=== PATIENT | male | born 1940 | race Caucasian/White ===

== ENCOUNTER 2017-09-09 08:58 | Observation (INO) ==
[2017-09-09] MEDS ORDERED: 0.9 % Sodium Chloride 1,000 ML IVC ONE (09:21)
--- NOTE | 2017-09-09 09:21 | Emergency Department Note ---
Disposition Clinical Impression: Hyponatremia, Hypochloremia, Muscle cramps, Increased frequency of urination Disposition: Admitted As Inpatient Condition: Good Time of Disposition: 11:32 General Adult HPI - General Chief complaint: ED Abdominal Pain Stated complaint: urinary symptoms/leg cramps/exhaustion/abd pain Time Seen by Provider: 09/09/17 09:04 Source: patient, family (Daughter) Mode of arrival: ambulatory Limitations: no limitations Nursing Notes Reviewed: Yes Vital Signs Reviewed: Yes - History of Present Illness HPI Narrative: 77-year-old male history of [id number] diabetes mellitus and history of BPH s/p TURP presents emergency department for urinary frequency and cramping. Patient has been having issues with urinary frequency over the past 2 weeks or so. Recently seen here in the emergency department as well as primary care physician and diagnosed with urinary tract infection. He is currently on his 2nd antibiotic after being switched 4 days after culture grew for sensitivity. Despite the antibiotics which he continues to have urinary frequency. He feels exhausted from having to wake up throughout the evening to urinate. He does state recently his blood sugars have been higher than normal roughly 170-200. States his most recent one was about 140 and that is were typically is. He admits to outpour compliant diet. He denies any fevers or recent illness. Denies any cough, shortness of breath or chest pain. He does describe some generalized abdominal pain that is been ongoing for several weeks now. States last week CT was performed and did not show anything. The discomfort has not changed it just continues to be there. He denies any nausea or vomiting. He also reports the past 2 nights he has been experiencing some cramping from the knees down mostly in the calf region. Anytime he attempts to get out of bed seems like the muscle pulls. He is concerned he is dehydrated. He does admit to not drinking as much. History of cholecystectomy and appendectomy. He takes plavix, no anticoagulants. Pain Scale: 8 - Related Data Home Medications Medication Instructions Recorded Confirmed Aspirin Enteric Coated [Aspirin EC] 81 mg PO DAILY 11/11/14 09/09/17 Losartan Potassium [Cozaar] 50 mg PO DAILY 11/11/14 09/09/17 Cholecalciferol (Vitamin D3) 2,000 unit PO DAILY 06/05/15 09/09/17 [Vitamin D3] Atorvastatin [Lipitor] 20 mg PO HS 06/01/16 09/09/17 Dutasteride [Avodart] 0.5 mg PO QWEEK 06/01/16 09/09/17 Mirtazapine 7.5 mg PO HS 04/24/17 09/09/17 Famotidine [Heartburn Prevention] 10 mg PO DAILY 05/16/17 09/09/17 Metformin HCl [Metformin HCl ER] 500 mg PO BID 05/16/17 09/09/17 Metoprolol XL (24 HR) Succ [Toprol 100 mg PO DAILY 05/16/17 09/09/17 Xl] Omeprazole [PriLOSEC] 40 mg PO DAILY 05/16/17 09/09/17 Super Beta Prostate 1 tab PO BID 05/16/17 09/09/17 Topiramate [Topamax] 25 mg PO DAILY 05/16/17 09/09/17 Clopidogrel [Plavix] 75 mg PO DAILY 09/09/17 09/09/17 Isosorbide MONOnitrate (24 HR) 90 mg PO DAILY 09/09/17 09/09/17 [Imdur] Levothyroxine [Synthroid] [place] [address]/09/17 09/09/17 Sulfamethoxazole/Trimeth DS 1 tab PO BID 09/09/17 09/09/17 [Bactrim DS] Tamsulosin [Flomax] 0.4 mg PO DAILY 09/09/17 09/09/17 Previous Rx's Medication Instructions Recorded Albuterol Sulfate [Albuterol 2 puff IH Q4HR PRN #1 hfa.aer.ad 05/17/17 Inhaler] amLODIPine [Norvasc] 5 mg PO DAILY #30 tablet 05/17/17 Doxycycline 100 mg PO BID #10 capsule 08/16/17 Phenazopyridine [Pyridium] 100 mg PO TID #30 tablet 08/29/17 Allergies Allergy/AdvReac Type Severity Reaction Status Date / Time cephalexin AdvReac Rash Verified 09/09/17 11:38 ciprofloxacin [From Cipro] AdvReac Rash Verified 09/09/17 11:38 fenofibrate [From Tricor] AdvReac Rash Verified 09/09/17 11:38 hydrocodone AdvReac Dizziness Verified 09/09/17 11:38 Oxycodone [From Percocet] AdvReac Rash Verified 09/09/17 11:38 sulfamethoxazole AdvReac Rash Verified 09/09/17 11:38 [From Bactrim] tramadol AdvReac Rash Verified 09/09/17 11:38 trimethoprim [From Bactrim] AdvReac Rash Verified 09/09/17 11:38 All systems ED: reviewed and negative except as stated. Review of Systems: As Per HPI Constitutional: Reports: weakness. Denies: fever, chills Cardiovascular: Denies: chest pain Respiratory: Denies: cough, dyspnea Gastrointestinal: Reports: abdominal pain. Denies: nausea, vomiting, diarrhea, constipation Genitourinary: Reports: frequency. Denies: urgency, dysuria Musculoskeletal: Denies: back pain, neck pain Past Medical History - Past Medical History Attestation: Yes The following information was validated with the patient. Source: patient Medical history: Reports: CHF, diabetes, GERD, hypertension, liver disease, migraine, thyroid disease, TIA Psychiatric history: Reports: anxiety, depression - Social History Smoking Status: Never smoker Smokeless Tobacco Status: No Alcohol use: Reports: none Drug use: Reports: none Physical Exam - General Limitations: no limitations General appearance: alert, in no apparent distress - Head Head exam: atraumatic, normocephalic, normal inspection - Eye Eye exam: Present: normal appearance, PERRL, EOMI - ENT ENT exam: normal exam, normal oropharynx, mucous membranes moist - Neck Neck exam: Present: normal inspection, full ROM, trachea midline - Chest Chest inspection: Present: normal inspection, symmetric chest wall rise. Absent : tenderness, rash - Respiratory Respiratory exam: Present: normal lung sounds bilaterally. Absent: respiratory distress, wheezes - Cardiovascular Cardiovascular exam: Present: regular rate, normal rhythm, normal heart sounds. Absent: systolic murmur, diastolic murmur - Abdominal Exam Abdominal exam: Present: soft, tenderness. Absent: distention, guarding, rebound, rigidity, Escalante's sign, Rovsing's sign, tenderness at McBurney's Point Abdominal tenderness: Present: diffuse - Extremities Exam Extremities exam: Present: normal inspection, full ROM, normal capillary refill , calf tenderness. Absent: tenderness, pedal edema - Back Exam Back exam: Present: normal inspection, full ROM, CVA tenderness (R). Absent: tenderness, CVA tenderness (L) - Neurological Exam Neurological exam: Present: alert, oriented X3 - Psychiatric Psychiatric exam: Present: normal affect, normal mood - Skin Skin exam: Present: warm, dry, intact, normal color. Absent: rash, cyanosis, diaphoresis Course Course Narrative: Patient presents with persistent urinary frequency. He goes roughly every 30 minutes to reports. History of BPH s/p TURP, takes Tamsulosin. He denies any fevers, nausea or vomiting. Recently evaluated with CT scan that I reviewed that showed no acute abnormalities. He did have some diverticulosis without diverticulitis. History of cholecystectomy and appendectomy. Reports some cramping as well on top of the polyuria. Recent increase in much sugar levels. Will evaluate his electrolytes in the urinalysis. His abdomen was otherwise soft with generalize diffuse tenderness. No rigidity or rebound. Some mild right CVA tenderness. Post void residual measured 39 cm3. Will check urinalysis and electrolytes including mag and EKG. - Reevaluation(s) Reevaluation #1: Patient's urinalysis is not consistent with infection. Review of electrolyte shows worsening hyponatremia at 124 with hypochloremia. Serum osmolality is low as well. This is the lowest it has ever been. He denies any weight loss or cancer. Denies history of smoking. He does not drink alcohol. On examination he does not appear fluid overload. Will further evaluate with urine sodium, creatinine and osmolality. He reports a history of hemochromatosis which is oncologist monitors form but because this is the low to sever been we like to admit him to the hospital for further evaluation. Patient will require admission for further evaluation of his hyponatremia and further monitoring and management. They are in agreement with this plan. Impression is hyponatremia and hypochloremia. Time: 10:50 - Consultations Consultation #1: Spoke with on-call hospitalist micah Harp to admit for hyponatremia. No further orders at this time Time: 11:39 Vital Signs Temperature 97.7 F 09/09/17 08:59 Pulse Rate 73 09/09/17 08:59 Respiratory Rate 20 09/09/17 08:59 Blood Pressure 125/74 09/09/17 08:59 O2 Sat by Pulse Oximetry 98 09/09/17 08:59 Temperature 97.7 F 09/09/17 08:59 Pulse Rate 63 09/09/17 11:29 Respiratory Rate 16 09/09/17 11:29 Blood Pressure 131/77 09/09/17 11:29 O2 Sat by Pulse Oximetry 98 09/09/17 11:29 Oxygen Delivery Oxygen Delivery Room Air Medical Decision Making - MDM Narrative Medical decision making narrative: Patient was discussed with my attending physician who agrees with ED management and final disposition. They independently evaluated the patient. Please refer to their attestation to this encounter for additional information. This note was generated by [employer] voice recognition software and as a result grammatical or spelling errors may occur using this program. - Medical Records Medical records reviewed: Yes I reviewed the patient's medical records. - Lab Data Lab results reviewed: Yes I reviewed the patient's lab results. Result diagrams: 09/09/17 09:16 09/09/17 09:16 Lab Results 09/09/17 09/09/17 09/09/17 Range/Units 09:16 09:16 09:50 WBC 4.4 (4.3-11.1) K/mcL RBC 4.65 (4.19-5.50) M/mcL Hgb 14.3 (12.9-16.9) g/dL Hct 38.8 (37.5-50.1) % MCV 83.4 (83.0-100.0) fL MCH 30.8 (28.0-33.3) pg MCHC 36.9 H (31.6-35.5) g/dL RDW 13.5 (11.5-14.5) % Plt Count 115 L (140-400) K/mcL MPV 9.9 (9.4-12.4) fL Immature Gran % 0.2 (0-4) % Seg Neutrophils % 63.1 % Lymphocytes % 25.5 % Monocytes % 9.9 % Eosinophils % 1.1 % Basophils % 0.2 % Neutrophils # 2.8 (1.6-8.9) K/mcL Lymphocytes # 1.1 (0.6-4.6) K/mcL Monocytes # 0.4 (0.0-1.3) K/mcL Eosinophils # 0.1 (0.0-0.6) K/mcL Basophils # 0.0 (0.0-0.2) K/mcL Immature Plt Fraction 3.5 (1.1-6.1) % Sodium 124 L (136-145) mEq/L Potassium 4.6 (3.5-5.1) mEq/L Chloride 94 L (98-107) mEq/L Carbon Dioxide 23 (23-29) mEq/L BUN 13 (8-23) mg/dL Creatinine 1.07 (0.70-1.30) mg/dL Est GFR ( Amer) > 60 (> 60) Est GFR (Non-Af Amer) > 60 (> 60) BUN/Creatinine Ratio 12 (6-26) Glucose 183 H (70-105) mg/dL Calculated Osmolality 263 L (280-300) Calcium 9.9 (8.6-10.3) mg/dL Total Bilirubin 1.2 H (0.3-1.0) mg/dL AST 47 H (13-39) Units/L ALT 47 (7-52) Units/L Alkaline Phosphatase 74 (34-104) Units/L Serum Total Protein 7.5 (6.4-8.9) g/dL Albumin 5.0 (3.5-5.7) g/dL Globulin 2.5 (2.4-3.5) g/dL Albumin/Globulin Ratio 2.0 (1.1-2.2) Urine Color Yellow (Yellow) Urine Clarity Clear (Clear) Urine pH 6.0 (5.0-8.0) pH Units Ur Specific [place] 1.016 (1.010-1.025) Urine Protein Negative (Neg-Trace) mg/dL Urine Glucose (UA) Normal (Normal) mg/dL Urine Ketones Negative (Negative) mg/dL Urine Blood Negative (Negative) Urine Nitrite Negative (Negative) Urine Bilirubin Negative (Negative) Urine Urobilinogen Normal (Normal) mg/dL Ur Leukocyte Esterase Negative (Negative) Ur Culture Indicated? NO (NO) - EKG Data EKG #1 EKG attestation: Yes I reviewed and interpreted this EKG. EKG results narrative: EKG performed 1048 shows normal sinus rhythm 61 bpm with first-degree AV block KS interval 225, there is an occasional PVC, no ST elevation or depression, old Q waves in the inferior lead. Compared to prior EKG performed 05/16/2017 shows similar consistent finding of normal sinus rhythm 64 beats per minute with KS interval 195 and similar Q waves morphology no acute ischemic changes. Attestation Statement - Attestation Attestation: I, Wellington Ann DO, examined this patient [id number] and my medical decision-making was reviewed with Luis Guzman DO , Resident Physician. I agree with the documented findings, disposition and treatment plan as described except to the extent set forth below. Please see my progress notes for details.
--- NOTE | 2017-09-09 10:03 | Emergency Department Note ---
Disposition Clinical Impression: Hyponatremia, Hypochloremia, Muscle cramps, Increased frequency of urination Disposition: Admitted As Inpatient Condition: Good Referrals: Shalini Wood MD [Primary Care Provider] - Forms: ED Satisfaction Letter, Work/School Release Time of Disposition: 11:48 General Adult HPI - General Chief complaint: ED Abdominal Pain Stated complaint: urinary symptoms/leg cramps/exhaustion/abd pain Time Seen by Provider: 09/09/17 09:04 Source: patient, family (Daughter) Mode of arrival: ambulatory Limitations: no limitations - History of Present Illness Pain Scale: 8 - Related Data Home Medications Medication Instructions Recorded Confirmed Aspirin Enteric Coated [Aspirin EC] 81 mg PO DAILY 11/11/14 09/09/17 Losartan Potassium [Cozaar] 50 mg PO DAILY 11/11/14 09/09/17 Cholecalciferol (Vitamin D3) 2,000 unit PO DAILY 06/05/15 09/09/17 [Vitamin D3] Atorvastatin [Lipitor] 20 mg PO HS 06/01/16 09/09/17 Dutasteride [Avodart] 0.5 mg PO QWEEK 06/01/16 09/09/17 Mirtazapine 7.5 mg PO HS 04/24/17 09/09/17 Famotidine [Heartburn Prevention] 10 mg PO DAILY 05/16/17 09/09/17 Metformin HCl [Metformin HCl ER] 500 mg PO BID 05/16/17 09/09/17 Metoprolol XL (24 HR) Succ [Toprol 100 mg PO DAILY 05/16/17 09/09/17 Xl] Omeprazole [PriLOSEC] 40 mg PO DAILY 05/16/17 09/09/17 Super Beta Prostate 1 tab PO BID 05/16/17 09/09/17 Topiramate [Topamax] 25 mg PO DAILY 05/16/17 09/09/17 Clopidogrel [Plavix] 75 mg PO DAILY 09/09/17 09/09/17 Isosorbide MONOnitrate (24 HR) 90 mg PO DAILY 09/09/17 09/09/17 [Imdur] Levothyroxine [Synthroid] 50 mcg PO 0630 09/09/17 09/09/17 Sulfamethoxazole/Trimeth DS 1 tab PO BID 09/09/17 09/09/17 [Bactrim DS] Tamsulosin [Flomax] 0.4 mg PO DAILY 09/09/17 09/09/17 Previous Rx's Medication Instructions Recorded Albuterol Sulfate [Albuterol 2 puff IH Q4HR PRN #1 hfa.aer.ad 05/17/17 Inhaler] amLODIPine [Norvasc] 5 mg PO DAILY #30 tablet 05/17/17 Doxycycline 100 mg PO BID #10 capsule 08/16/17 Phenazopyridine [Pyridium] 100 mg PO TID #30 tablet 08/29/17 Allergies Allergy/AdvReac Type Severity Reaction Status Date / Time cephalexin AdvReac Rash Verified 09/09/17 11:38 ciprofloxacin [From Cipro] AdvReac Rash Verified 09/09/17 11:38 fenofibrate [From Tricor] AdvReac Rash Verified 09/09/17 11:38 hydrocodone AdvReac Dizziness Verified 09/09/17 11:38 Oxycodone [From Percocet] AdvReac Rash Verified 09/09/17 11:38 sulfamethoxazole AdvReac Rash Verified 09/09/17 11:38 [From Bactrim] tramadol AdvReac Rash Verified 09/09/17 11:38 trimethoprim [From Bactrim] AdvReac Rash Verified 09/09/17 11:38 Constitutional: Reports: weakness. Denies: fever, chills Cardiovascular: Denies: chest pain Respiratory: Denies: cough, dyspnea Gastrointestinal: Reports: abdominal pain. Denies: nausea, vomiting, diarrhea, constipation Genitourinary: Reports: frequency. Denies: urgency, dysuria Musculoskeletal: Denies: back pain, neck pain Past Medical History - Past Medical History Medical history: Reports: CHF, diabetes, GERD, hypertension, liver disease, migraine, thyroid disease, TIA Psychiatric history: Reports: anxiety, depression - Social History Smoking Status: Never smoker Smokeless Tobacco Status: No Alcohol use: Reports: none Drug use: Reports: none Physical Exam - General Limitations: no limitations General appearance: alert, in no apparent distress Course Vital Signs Temperature 97.7 F 09/09/17 08:59 Pulse Rate 73 09/09/17 08:59 Respiratory Rate 20 09/09/17 08:59 Blood Pressure 125/74 09/09/17 08:59 O2 Sat by Pulse Oximetry 98 09/09/17 08:59 Temperature 97.7 F 09/09/17 08:59 Pulse Rate 63 09/09/17 11:29 Respiratory Rate 16 09/09/17 11:29 Blood Pressure 131/77 09/09/17 11:29 O2 Sat by Pulse Oximetry 98 09/09/17 11:29 Oxygen Delivery Oxygen Delivery Room Air Medical Decision Making - Lab Data Result diagrams: 09/09/17 09:16 09/09/17 09:16 Lab Results 09/09/17 09/09/17 09/09/17 Range/Units 09:16 09:16 09:50 WBC 4.4 (4.3-11.1) K/mcL RBC 4.65 (4.19-5.50) M/mcL Hgb 14.3 (12.9-16.9) g/dL Hct 38.8 (37.5-50.1) % MCV 83.4 (83.0-100.0) fL MCH 30.8 (28.0-33.3) pg MCHC 36.9 H (31.6-35.5) g/dL RDW 13.5 (11.5-14.5) % Plt Count 115 L (140-400) K/mcL MPV 9.9 (9.4-12.4) fL Immature Gran % 0.2 (0-4) % Seg Neutrophils % 63.1 % Lymphocytes % 25.5 % Monocytes % 9.9 % Eosinophils % 1.1 % Basophils % 0.2 % Neutrophils # 2.8 (1.6-8.9) K/mcL Lymphocytes # 1.1 (0.6-4.6) K/mcL Monocytes # 0.4 (0.0-1.3) K/mcL Eosinophils # 0.1 (0.0-0.6) K/mcL Basophils # 0.0 (0.0-0.2) K/mcL Immature Plt Fraction 3.5 (1.1-6.1) % Sodium 124 L (136-145) mEq/L Potassium 4.6 (3.5-5.1) mEq/L Chloride 94 L (98-107) mEq/L Carbon Dioxide 23 (23-29) mEq/L BUN 13 (8-23) mg/dL Creatinine 1.07 (0.70-1.30) mg/dL Est GFR ( Amer) > 60 (> 60) Est GFR (Non-Af Amer) > 60 (> 60) BUN/Creatinine Ratio 12 (6-26) Glucose 183 H (70-105) mg/dL Calculated Osmolality 263 L (280-300) Calcium 9.9 (8.6-10.3) mg/dL Total Bilirubin 1.2 H (0.3-1.0) mg/dL AST 47 H (13-39) Units/L ALT 47 (7-52) Units/L Alkaline Phosphatase 74 (34-104) Units/L Serum Total Protein 7.5 (6.4-8.9) g/dL Albumin 5.0 (3.5-5.7) g/dL Globulin 2.5 (2.4-3.5) g/dL Albumin/Globulin Ratio 2.0 (1.1-2.2) Urine Color Yellow (Yellow) Urine Clarity Clear (Clear) Urine pH 6.0 (5.0-8.0) pH Units Ur Specific [place] 1.016 (1.010-1.025) Urine Protein Negative (Neg-Trace) mg/dL Urine Glucose (UA) Normal (Normal) mg/dL Urine Ketones Negative (Negative) mg/dL Urine Blood Negative (Negative) Urine Nitrite Negative (Negative) Urine Bilirubin Negative (Negative) Urine Urobilinogen Normal (Normal) mg/dL Ur Leukocyte Esterase Negative (Negative) Ur Culture Indicated? NO (NO) Attestation Statement - Attestation Attestation: I, Wellington Ann DO, examined this patient [id number] and my medical decision-making was reviewed with Luis Guzman DO , Resident Physician. I agree with the documented findings, disposition and treatment plan as described except to the extent set forth below. Please see my progress notes for details. 77-year-old male presents emergency room for evaluation of urinary symptoms. Patient said the symptoms on and off for 2 weeks. He denies any trauma or injury. Currently denying fevers chills chest pain shortness of breath headache vision changes nausea vomiting or diarrhea. He has been on antibiotic for approximately 5 days. He still has persistent increased urination that is keeping him up at night. He also has noticed some cramps in his bilateral lower extremities. He is on a diuretic at home. Patient also has a cardiac history. All of his other chronic symptoms appear to be at baseline and are not causing any issues point. His main complaint is he has not been able to sleep or get comfortable at night because he has to wake up every 30-40 minutes to urinate. He did have a TURP completed approximately 6 years ago and had not had any problems since then. Over the last several weeks she has noticed progressively worsening urinary related issues. Urinalysis was reviewed from previous evaluation was positive for Pseudomonas that was sensitive to all antibiotics. Patient has been on antibiotic at this time. Physical exam is otherwise unremarkable this is a well-appearing gentleman resting comfortably in the bed lungs are clear heart is regular abdomen is soft he does have some mild suprapubic discomfort and tenderness but no guarding no rigidity no peritoneal symptoms. No reproducible CVA tenderness noted on exam. There is no visible signs or rash or lesion across the torso. Patient is ambulatory in his main complaint at this time is that he is unable to sleep because he wakes up to urinate so often. CT imaging from previous evaluation less than one week ago was reviewed by myself and does show an enlarged prostate but no signs of inflammation. His bladder is enlarged on CT scan this time. Postvoid residual will be completed at this point along with screening laboratory workup. Disposition to be determined once full workup and treatment course, established. CBC chemistry and urinalysis will be reviewed. The daughter is concerned about diabetic related issues and requested workup at this time. Clinically he does not meet any criteria for diabetic ketoacidosis or diabetic related issues at this point. Screening labs will be reviewed with any of these concerns and disposition to be determined. See detailed documentation, physical exam, medical intervention, medical decision-making and disposition in the resident physician's note. No critical care provider the patient's treatment course. 1050 Patient has hyponatremia as well as hypokalemia that is worse than previous. Could account for the patient's symptoms including cramping and pain in the extremities. Urinary symptoms are unknown etiology at this point. Because of a context of urinary related complaint as well as the hyponatremia patient most likely require admission for further workup and evaluation. Patient is otherwise currently stable and urine is negative. Disposition pending the completion of the treatment course and evaluation. Patient was also placed on peritoneum during the last evaluation and did not specifically help with the symptoms. Disposition will most likely be admission secondary to the abnormal labs are progressively getting worse along with the patient's urinary symptoms. Patient is otherwise hemodynamically stable. Admission process to be completed. 1145 Patient was discussed with the hospitalist. He will come and evaluate the patient in the emergency room. Admission process will be completed for unknown etiology to the hyponatremia as well as generalized weakness and cramping. Patient is otherwise clinically stable. Admission process to be completed at this time.
[2017-09-09 10:06] LABS: Immature Granulocytes % 0.2 % (0-4)
[2017-09-09 10:30] LABS: Bilirubin,Urine Negative (Negative); Blood,Urine Negative (Negative); Clarity,Urine Clear (Clear); Color,Urine Yellow (Yellow); Glucose,Urine (UA) Normal (Normal); Ketones,Urine Negative (Negative); Leukocyte Esterase,Urine Negative (Negative); Nitrite,Urine Negative (Negative); Protein,Urine Negative (Neg-Trace); Specific Gravity,Urine 1.016 (1.010-1.025); Urobilinogen,Urine Normal (Normal)
[2017-09-09 10:36] LABS: Alanine Aminotransferase 47 Units/L (7-52); Alkaline Phosphatase 74 Units/L (34-104); Aspartate Amino Transferase 47 Units/L (13-39); BUN/Creatinine Ratio 12 (6-26); Bilirubin,Total 1.2 mg/dL (0.3-1.0); Blood Urea Nitrogen 13 mg/dL (8-23); Calcium 9.9 mg/dL (8.6-10.3); Carbon Dioxide 23 mEq/L (23-29); Chloride 94 mEq/L (98-107); Globulin 2.5 g/dL (2.4-3.5); Glucose 183 mg/dL (70-105); Osmolality,Calculated 263 (280-300); Potassium 4.6 mEq/L (3.5-5.1); Sodium 124 mEq/L (136-145); Total Protein 7.5 g/dL (6.4-8.9); eGFR For African Americans > 60 (> 60); eGFR For Non-African Americans > 60 (> 60)
[2017-09-09 10:42] LABS: Basophils % 0.2 %; Monocytes % 9.9 %
[2017-09-09 10:45] LABS: Eosinophils # 0.1 K/mcL (0.0-0.6); Eosinophils % 1.1 %; Hematocrit 38.8 % (37.5-50.1); Hemoglobin 14.3 g/dL (12.9-16.9); Immature Platelets 3.5 % (1.1-6.1); Lymphocytes # 1.1 K/mcL (0.6-4.6); Lymphocytes % 25.5 %; Mean Corpuscular HGB Conc 36.9 g/dL (31.6-35.5); Mean Corpuscular Hemoglobin 30.8 pg (28.0-33.3); Mean Corpuscular Volume 83.4 fL (83.0-100.0); Mean Platelet Volume 9.9 fL (9.4-12.4); Monocytes # 0.4 K/mcL (0.0-1.3); Platelet Count 115 K/mcL (140-400); Red Blood Count 4.65 M/mcL (4.19-5.50); Red Cell Distribution Width 13.5 % (11.5-14.5); Segmented Neutrophils % 63.1 %
[2017-09-09 10:55] LABS: Neutrophils # 2.8 K/mcL (1.6-8.9)
[2017-09-09] MEDS ORDERED: Naloxone 0.4 MG/ML INJ IVP PRN (12:10)
--- NOTE | 2017-09-09 12:21 | Internal Med History&Physical ---
<BalbirDanielle R - Last Filed: 09/09/17 13:34> Date of Encounter: 09/09/17 Time of Encounter: 12:20 Internal Medicine - H&P: HPI Chief complaint: Urine frequency and weakness Admitted From: Home Plans for Post Hospital Care: Home History of present illness: Mr. Murray is a 77 year old male with history of prostate resection, status post TURP, hemochromatosis, with last phlebotomy in May 2017, heart failure , stents 3, and BPH. Patient was seen in the ED earlier this week with similar symptoms and was placed on Bactrim after a culture and sensitivity report. He indicated this is the second antibiotic for his UTI. Today the patient indicates he continues to have urinary frequency for the past 2 weeks and was started on Pyridium, which was not helpful. UA showed no evidence of a UTI today, will get culture. Patient does have history of BPH with a prostate resection and s/p Turp and is currently on Flomax. Sodium today is 124, patient has had urine frequency home with small amounts of urine and he indicated that he was increasing his fluids at home. He does not think he is dry. Waiting for results of serum osmalarity, urine na and urine osmalarity. Preserved creatinine and BUN @ this time. Chloride was also decreased at 94. Will continue IVF's. Past Med Surg Social Fam HX - Past Medical History Medical history: CHF, diabetes, GERD, hypertension, liver disease, migraine, thyroid disease, TIA Psychiatric history: anxiety, depression - Social History Smoking Status: Never smoker Smokeless Tobacco Status: No Alcohol use: none Drug use: none Internal Medicine - H&P: Meds Aspirin Enteric Coated [Aspirin EC] 81 mg PO DAILY 11/11/14 [History] Losartan Potassium [Cozaar] 50 mg PO DAILY 11/11/14 [History] Cholecalciferol (Vitamin D3) [Vitamin D3] 2,000 unit PO DAILY 06/05/15 [History] Atorvastatin [Lipitor] 20 mg PO HS 06/01/16 [History] Dutasteride [Avodart] 0.5 mg PO QWEEK 06/01/16 [History] Mirtazapine 7.5 mg PO HS 04/24/17 [History] Famotidine [Heartburn Prevention] 10 mg PO DAILY 05/16/17 [History] Metformin HCl [Metformin HCl ER] 500 mg PO BID 05/16/17 [History] Metoprolol XL (24 HR) Succ [Toprol Xl] 100 mg PO DAILY 05/16/17 [History] Omeprazole [PriLOSEC] 40 mg PO DAILY 05/16/17 [History] Super Beta Prostate 1 tab PO BID 05/16/17 [History] Topiramate [Topamax] 25 mg PO DAILY 05/16/17 [History] Albuterol Sulfate [Albuterol Inhaler] 2 puff IH Q4HR PRN #1 hfa.aer.ad 05/17/17 [Rx] amLODIPine [Norvasc] 5 mg PO DAILY #30 tablet 05/17/17 [Rx] Doxycycline 100 mg PO BID #10 capsule 08/16/17 [Rx] Phenazopyridine [Pyridium] 100 mg PO TID #30 tablet 08/29/17 [Rx] Clopidogrel [Plavix] 75 mg PO DAILY 09/09/17 [History] Isosorbide MONOnitrate (24 HR) [Imdur] 90 mg PO DAILY 09/09/17 [History] Levothyroxine [Synthroid] 50 mcg PO 30 09/09/17 [History] Tamsulosin [Flomax] 0.4 mg PO DAILY 09/09/17 [History] 3 Allergy/AdvReac Type Severity Reaction Status Date / Time cephalexin AdvReac Rash Verified 09/09/17 11:38 ciprofloxacin [From Cipro] AdvReac Rash Verified 09/09/17 11:38 fenofibrate [From Tricor] AdvReac Rash Verified 09/09/17 11:38 hydrocodone AdvReac Dizziness Verified 09/09/17 11:38 Oxycodone [From Percocet] AdvReac Rash Verified 09/09/17 11:38 sulfamethoxazole AdvReac Rash Verified 09/09/17 11:38 [From Bactrim] tramadol AdvReac Rash Verified 09/09/17 11:38 trimethoprim [From Bactrim] AdvReac Rash Verified 09/09/17 11:38 All Systems PM: A 10-system review of systems was performed and is negative for pertinent findings except as documented above in the HPI. - Constitutional Constitutional: fatigue, no chills, no fever(s), no night sweats - EENT Eyes: no change in vision, no discharge, no pain, no photophobia Ears: no ear discharge, no ear pain, no tinnitus Nose, mouth and throat: no dysphagia, no nasal discharge, no neck pain, no sore throat - Cardiovascular Cardiovascular ROS IM: no chest pain, no diaphoresis, no dyspnea, no lightheadedness, no palpitations, no syncope - Respiratory Respiratory: no cough, no dyspnea, no wheezing, no excessive phlegm production - Gastrointestinal Gastrointestinal: no abdominal pain, no diarrhea, no hematemesis, no hematochezia, no melena, no nausea, no vomiting - Genitourinary Genitourinary ROS male: nocturia, urinary frequency, urinary urgency - Musculoskeletal Musculoskeletal ROS IM: no numbness, no tingling - Integumentary Integumentary IM: no rash, no unusual bruising - Neurological Neurological ROS: no confusion, no convulsions, no focal weakness, no numbness, no tingling, no tremor(s) - Endocrine Endocrine IM: polyuria - Hematologic/Lymphatic Hematologic/Lymphatic: no easy bruising - Constitutional Vitals: Temp Pulse Resp BP Pulse Ox 97.7 F 63 16 131/77 98 09/09/17 08:59 09/09/17 11:29 09/09/17 11:29 09/09/17 11:29 09/09/17 11:29 General appearance: Present: A&O X 3 - Head Head exam: Present: atraumatic, normocephalic - Eye Eye exam: Present: PERRL, conjuntiva pink, sclera anicteric Pupils: Present: PERRL - Neck Neck exam general surgery: Present: supple, trachea midline. Absent: lymphadenopathy - Respiratory Respiratory exam: Present: CTAB. Absent: accessory muscle use, rales, rhonchi, wheezes - Cardiovascular Cardiovascular exam: Present: RRR, +S1, +S2. Absent: diastolic murmur, gallop, rubs, systolic murmur - GI/Abdominal GI/Abdominal exam: Present: normal bowel sounds, soft, no peritoneal signs. Absent: distended, tenderness - Extremities Exam Extremities exam: Present: warm, radial pulses palpable and symmetrical. Absent : calf tenderness, cyanotic, pedal edema - Neurological Exam Neurological exam: Present: CN II-XII intact, oriented X3, no focal deficits. Absent: pronater drift, facial droop, speech deficit - Skin Skin exam: Present: dry, intact Internal Med - H&P Results - Labs CBC & Chem 7: 09/09/17 09:16 09/09/17 09:16 Labs: Short CBC 09/09/17 Range/Units 09:16 WBC 4.4 (4.3-11.1) K/mcL Hgb 14.3 (12.9-16.9) g/dL Hct 38.8 (37.5-50.1) % Plt Count 115 L (140-400) K/mcL Neutrophils # 2.8 (1.6-8.9) K/mcL BMP 09/09/17 09:16 Sodium 124 L Potassium 4.6 Chloride 94 L Carbon Dioxide 23 BUN 13 Creatinine 1.07 Glucose 183 H Calcium 9.9 Liver Function 09/09/17 Range/Units 09:16 Total Bilirubin 1.2 H (0.3-1.0) mg/dL AST 47 H (13-39) Units/L ALT 47 (7-52) Units/L Alkaline Phosphatase 74 (34-104) Units/L Albumin 5.0 (3.5-5.7) g/dL Urine 09/09/17 Range/Units 09:50 Urine Color Yellow (Yellow) Urine Clarity Clear (Clear) Urine pH 6.0 (5.0-8.0) pH Units Ur Specific [place] 1.016 (1.010-1.025) Urine Protein Negative (Neg-Trace) mg/dL Urine Glucose (UA) Normal (Normal) mg/dL - Assessment and plan (1) Hyponatremia Current Visit: Yes Status: Acute Assessment and plan: Na is 124 today most likely due to hypovolemia and dehydration Serum Na every 4 hours Gentle IV fluids Goal of correction today is up to 130 Serum osmalarity, urine osmalarity and urine na today (2) Hypochloremia Current Visit: Yes Status: Acute Assessment and plan: Continue IVFs 0.9% NS @ 100ml/hr (3) Increased frequency of urination Current Visit: Yes Status: Acute Assessment and plan: Continue home med, Flomax daily Patient had prostate resection 6-[address] Kapadia for similar symptoms UA negative for infection, Asked lab to culture urine due to the patient indicating positive cultures in the past with clean UA's. (4) Diabetes Current Visit: No Status: Acute Assessment and plan: Accu-Chek 183 on admission today, Goal is 200 or less, while inpatient We will hold metformin while inpatient and start mild Humalog insulin coverage Accu-Cheks before meals at bedtime Hemoglobin A1c in a.m. Qualifiers: Diabetes mellitus type: type 2 Diabetes mellitus mcfp insulin use: without exterminator termite use Diabetes mellitus complication status: with unspecified complications Qualified Code(s): E11.8 - Type 2 diabetes mellitus with unspecified complications (5) BPH (benign prostatic hyperplasia) Current Visit: Yes Status: Acute Assessment and plan: Patient had prostate resection 6-7 years ago. Hx of TURP Advised him to follow up outpatient with urologist. Continue home medications: Flomax Qualifiers: Lower urinary tract symptom presence: unspecified whether lower urinary tract symptoms present Qualified Code(s): N40.0 - Benign prostatic hyperplasia without lower urinary tract symptoms (6) Hemochromatosis Current Visit: No Status: Chronic Assessment and plan: Last phlebotomy was May 2017, Patient to follow-up outpatient with hematology Qualifiers: Hemochromatosis type: unspecified Qualified Code(s): E83.119 - Hemochromatosis, unspecified - Time Spent With Patient Total time spent is greater than 50% in coordination of care (as documented) at patient's floor/unit and/or counseling patient: 25 - 35 minutes <Octavia Ramirez - Last Filed: 09/10/17 08:08> Date of Encounter: 09/09/17 Internal Medicine - H&P: HPI History of present illness: Mr. Murray is a 77 year old male All Systems PM: A 10-system review of systems was performed and is negative for pertinent findings except as documented above in the HPI. - Constitutional Vitals: Temp Pulse Resp BP Pulse Ox 97.9 F 66 14 196/97 95 09/10/17 06:59 09/10/17 06:59 09/10/17 06:59 09/10/17 06:59 09/10/17 06:59 Internal Med - H&P Results - Labs CBC & Chem 7: 09/10/17 05:26 09/10/17 05:26 Labs: Short CBC 09/10/17 Range/Units 05:26 WBC 3.0 L (4.3-11.1) K/mcL Hgb 13.4 (12.9-16.9) g/dL Hct 35.3 L (37.5-50.1) % Plt Count 91 L (140-400) K/mcL Neutrophils # 1.9 (1.6-8.9) K/mcL BMP 09/09/17 09/09/17 09/10/17 16:03 20:21 00:00 Sodium 126 L 127 L 128 L Potassium Chloride Carbon Dioxide BUN Creatinine Glucose Calcium 09/10/17 05:26 Sodium 127 L Potassium 4.8 Chloride 101 Carbon Dioxide 21 L BUN 12 Creatinine 0.99 Glucose 131 H Calcium 9.4 Liver Function 09/10/17 Range/Units 05:26 Total Bilirubin 1.1 H (0.3-1.0) mg/dL AST 45 H (13-39) Units/L ALT 46 (7-52) Units/L Alkaline Phosphatase 72 (34-104) Units/L Albumin 4.5 (3.5-5.7) g/dL - Attending Attestation I have personally performed a face to face evaluation on this patient. I have reviewed and agree with the care plan provided by LIGHT RAIL OPERATOR Danielle Mcgregor. History and Exam by me shows: Mr. Murray is a 77 year old male with history of prostate resection, status post TURP, hemochromatosis, with last phlebotomy in May 2017, diastolic heart failure, CAD with stents 3, and BPH pt presented to ER with generalized weakness and cramps in both legs. Patient was seen in the ED earlier this week with similar symptoms and was placed on Bactrim after a culture and sensitivity report. He indicated this is the second antibiotic for his UTI. His UA - WNL, His sodium level @ 124. Gen: A, A, O x 3 Chest: Diminished BS b/l Heart: S1S2 + Abd: Soft, NT a/p 1. Acute hyponatremia Mostly hypovolemic cont IV hydration Q6hr Na Our goal of correction 0.5 meq/hr, not more than 8-10 meq/day He does need to be in the hospital more than 2 night, will make him full admission - Time Spent With Patient Total time spent is greater than 50% in coordination of care (as documented) at patient's floor/unit and/or counseling patient:
[2017-09-09 12:40] LABS: Magnesium 1.7 mg/dL (1.6-2.6)
[2017-09-09] MEDS ORDERED: Dextrose Gel 15 GM/37.5 ML TUBE PO PRN ×2 (13:05)
[2017-09-09] MEDS ORDERED: D5% in Water 1,000 ML IVC PRN (13:05)
[2017-09-09] MEDS ORDERED: *HR* Dextrose 50 % in Water (Syg) 50 ML SYRINGE IVP PRN (13:05)
[2017-09-09] MEDS: 0.9 % Sodium Chloride 1,000 ML IVC SCH (13:59)
[2017-09-09 14:18] LABS: Sodium, Urine 60.7 mEq/L
[2017-09-09] MEDS: Insulin LISPRO 300 UNITS/3 ML VIAL SQ SCH ×2 (18:06→21:10)
[2017-09-09] MEDS: Mirtazapine 15 MG TABLET PO SCH (19:44)
[2017-09-09] MEDS ORDERED: Sulfamethoxazole/Trimeth DS 1 EACH TABLET PO SCH (21:00)
[2017-09-10] MEDS: 0.9 % Sodium Chloride 1,000 ML IVC SCH (00:42)
[2017-09-10 06:02] LABS: Hematocrit 35.3 % (37.5-50.1); Immature Granulocytes % 0.3 % (0-4)
[2017-09-10 06:21] LABS: Alanine Aminotransferase 46 Units/L (7-52); Albumin 4.5 g/dL (3.5-5.7); Alkaline Phosphatase 72 Units/L (34-104); Aspartate Amino Transferase 45 Units/L (13-39); BUN/Creatinine Ratio 12 (6-26); Bilirubin,Total 1.1 mg/dL (0.3-1.0); Blood Urea Nitrogen 12 mg/dL (8-23); Calcium 9.4 mg/dL (8.6-10.3); Carbon Dioxide 21 mEq/L (23-29); Chloride 101 mEq/L (98-107); Globulin 2.3 g/dL (2.4-3.5); Glucose 131 mg/dL (70-105); Osmolality,Calculated 266 (280-300); Potassium 4.8 mEq/L (3.5-5.1); Sodium 127 mEq/L (136-145); Total Protein 6.8 g/dL (6.4-8.9); eGFR For African Americans > 60 (> 60); eGFR For Non-African Americans > 60 (> 60)
[2017-09-10 06:41] LABS: Basophils % 0.3 %; Eosinophils # 0.1 K/mcL (0.0-0.6); Eosinophils % 1.7 %; Hemoglobin 13.4 g/dL (12.9-16.9); Immature Platelets 2.8 % (1.1-6.1); Lymphocytes # 0.8 K/mcL (0.6-4.6); Lymphocytes % 24.9 %; Mean Corpuscular Hemoglobin 32.1 pg (28.0-33.3); Mean Corpuscular Volume 84.4 fL (83.0-100.0); Mean Platelet Volume 9.5 fL (9.4-12.4); Monocytes # 0.3 K/mcL (0.0-1.3); Neutrophils # 1.9 K/mcL (1.6-8.9); Red Blood Count 4.18 M/mcL (4.19-5.50); Red Cell Distribution Width 13.5 % (11.5-14.5); Segmented Neutrophils % 62.8 %
[2017-09-10 06:42] LABS: Platelet Count 91 K/mcL (140-400)
[2017-09-10 07:18] LABS: Estimated Average Glucose 171 mg/dl; Hemoglobin A1C 7.6 %
[2017-09-10] MEDS: Cholecalciferol (D-3) 1,000 UNIT TABLET PO SCH (07:58)
[2017-09-10] MEDS: Topiramate 25 MG TABLET PO SCH (07:58)
[2017-09-10] MEDS: amLODIPine 5 MG TABLET PO SCH (07:58)
[2017-09-10] MEDS: Famotidine 20 MG TABLET PO SCH (07:58)
[2017-09-10] MEDS: Aspirin Enteric Coated 81 MG Tablet PO SCH (07:59)
[2017-09-10] MEDS: Isosorbide MONOnitrate (24 HR) 30 MG TAB.ER.24H PO SCH (07:59)
[2017-09-10] MEDS: Metoprolol XL (24 HR) Succ 50 MG TAB.ER.24H PO SCH (07:59)
[2017-09-10] MEDS: Insulin LISPRO 300 UNITS/3 ML VIAL SQ SCH ×4 (08:00→20:21)
--- NOTE | 2017-09-10 10:20 | Urology - Consult Note ---
Date of Encounter: 09/10/17 Time of Encounter: 10:18 - Assessment and Plan (1) BPH (benign prostatic hyperplasia) Current Visit: Yes Status: Acute Assessment and plan: 77-year-old man with a history of BPH and increased urinary frequency. He seems to be emptying his bladder adequately. He is status post TUIP. I will give him a trial of oxybutynin 5 mg by mouth twice a day to see if that improves his frequency. His urine does not appear infected today. As an outpatient had recommended proceeding with a cystoscopy. The risks were informed. Again, we can arrange that as an outpatient. PSA was 0.61 from 2017. Qualifiers: Lower urinary tract symptom presence: unspecified whether lower urinary tract symptoms present Qualified Code(s): N40.0 - Benign prostatic hyperplasia without lower urinary tract symptoms (2) Increased frequency of urination Current Visit: Yes Status: Acute (3) Diabetes Current Visit: No Status: Acute Qualifiers: Diabetes mellitus type: type 2 Diabetes mellitus skilled nursing insulin use: without termite treater use Diabetes mellitus complication status: with unspecified complications Qualified Code(s): E11.8 - Type 2 diabetes mellitus with unspecified complications Urology CN:HPI Consult date: 09/10/17 Requesting physician: Rachael Quijano History of present illness: 77-year-old man presents with concern for hyponatremia, leg cramping, and increased urinary frequency. He has a long-standing history of diabetes mellitus. He is status post a TURP versus TUIP by Dr. Kapadia approximately 6 years ago. He notes increased urinary frequency and has been having trouble to sleep at night. He feels the urge to go the bathroom on time. He was recently treated for a Pseudomonas urinary tract infection. He had a CT scan which showed no evidence of nephrolithiasis. There is no evidence of hydronephrosis. He seems to be draining his bladder well. He takes some oral supplements for his prostate as well as tamsulosin. He has tried Azo, but that was not successful. Past Med Surg Social Fam HX - Past Medical History Medical history: CHF, diabetes, GERD, hypertension, liver disease, migraine, thyroid disease, TIA Psychiatric history: anxiety, depression - Past Surgical History Surgical History: appendectomy, cholecystectomy - Social History Smoking Status: Never smoker Smokeless Tobacco Status: No Alcohol use: none Drug use: none - Family History Father Adopted: Yes Mother History Unknown: Yes Medications and Allergies Aspirin Enteric Coated [Aspirin EC] 81 mg PO DAILY 11/11/14 [History] Losartan Potassium [Cozaar] 50 mg PO DAILY 11/11/14 [History] Cholecalciferol (Vitamin D3) [Vitamin D3] 2,000 unit PO DAILY 06/05/15 [History] Atorvastatin [Lipitor] 20 mg PO HS 06/01/16 [History] Dutasteride [Avodart] 0.5 mg PO QWEEK 06/01/16 [History] Mirtazapine 7.5 mg PO HS 04/24/17 [History] Famotidine [Heartburn Prevention] 10 mg PO DAILY 05/16/17 [History] Metformin HCl [Metformin HCl ER] 500 mg PO BID 05/16/17 [History] Metoprolol XL (24 HR) Succ [Toprol Xl] 100 mg PO DAILY 05/16/17 [History] Omeprazole [PriLOSEC] 40 mg PO DAILY 05/16/17 [History] Super Beta Prostate 1 tab PO BID 05/16/17 [History] Topiramate [Topamax] 25 mg PO DAILY 05/16/17 [History] Albuterol Sulfate [Albuterol Inhaler] 2 puff IH Q4HR PRN #1 hfa.aer.ad 05/17/17 [Rx] amLODIPine [Norvasc] 5 mg PO DAILY #30 tablet 05/17/17 [Rx] Doxycycline 100 mg PO BID #10 capsule 08/16/17 [Rx] Phenazopyridine [Pyridium] 100 mg PO TID #30 tablet 08/29/17 [Rx] Clopidogrel [Plavix] 75 mg PO DAILY 09/09/17 [History] Isosorbide MONOnitrate (24 HR) [Imdur] 90 mg PO DAILY 09/09/17 [History] Levothyroxine [Synthroid] 50 mcg PO 0630 09/09/17 [History] Tamsulosin [Flomax] 0.4 mg PO DAILY 09/09/17 [History] 3 Allergy/AdvReac Type Severity Reaction Status Date / Time cephalexin AdvReac Rash Verified 09/09/17 11:38 ciprofloxacin [From Cipro] AdvReac Rash Verified 09/09/17 11:38 fenofibrate [From Tricor] AdvReac Rash Verified 09/09/17 11:38 hydrocodone AdvReac Dizziness Verified 09/09/17 11:38 Oxycodone [From Percocet] AdvReac Rash Verified 09/09/17 11:38 sulfamethoxazole AdvReac Rash Verified 09/09/17 11:38 [From Bactrim] tramadol AdvReac Rash Verified 09/09/17 11:38 trimethoprim [From Bactrim] AdvReac Rash Verified 09/09/17 11:38 Review of Systems - Constitutional no chills, no fever(s) - EENT Nose, mouth and throat: no dizziness - Cardiovascular no chest pain - Respiratory no dyspnea - Gastrointestinal no nausea, no vomiting - Genitourinary urinary frequency, no flank pain, no hematuria - Musculoskeletal no back pain - Integumentary no erythema, no rash - Neurological no weakness - Psychiatric no suicidal ideation - Hematologic/Lymphatic no easy bleeding - Allergic/Immunologic no wheezing Exam Initial Vital Signs Temp Pulse Resp BP Pulse Ox 97.7 F 73 20 125/74 98 09/09/17 08:59 09/09/17 08:59 09/09/17 08:59 09/09/17 08:59 09/09/17 08:59 - General physical appearance Present: well developed, well nourished, no distress - Eyes Absent: icteric - ENT Present: normal nares - Neck Present: trachea midline - Respiratory Present: normal respiratory effort - Cardiovascular Cardiovascular exam IM: RRR - Abdomen Abdomen: Present: soft - Genitourinary normal penis with no external lesions (Uncircumcised. Normal testicles.) Urology Results - Labs 09/10/17 05:26 09/10/17 05:26 Abnormal lab results WBC 3.0 K/mcL (4.3-11.1) L 09/10/17 05:26 RBC 4.18 M/mcL (4.19-5.50) L 09/10/17 05:26 Hct 35.3 % (37.5-50.1) L 09/10/17 05:26 MCHC 38.0 g/dL (31.6-35.5) H 09/10/17 05:26 Plt Count 91 K/mcL (140-400) L 09/10/17 05:26 Sodium 127 mEq/L (136-145) L 09/10/17 05:26 Carbon Dioxide 21 mEq/L (23-29) L 09/10/17 05:26 Glucose 131 mg/dL (70-105) H 09/10/17 05:26 POC Glucose 160 mg/dL (70-99) H 09/09/17 20:06 Hemoglobin A1c 7.6 % (-5.6) H 09/10/17 05:26 Serum Osmolality 269 mOsm/kg (280-300) L 09/09/17 16:03 Calculated Osmolality 266 (280-300) L 09/10/17 05:26 Total Bilirubin 1.1 mg/dL (0.3-1.0) H 09/10/17 05:26 AST 45 Units/L (13-39) H 09/10/17 05:26 Globulin 2.3 g/dL (2.4-3.5) L 09/10/17 05:26 All other labs normal. - Imaging CT scan - abdomen: report reviewed, image reviewed CT scan - pelvis: report reviewed, image reviewed Consult Discharge Plan - Plan Referrals: Shalini Wood MD [Primary Care Provider] -
--- NOTE | 2017-09-10 12:29 | Internal Med Progress Note ---
Date of Encounter: 09/10/17 Time of Encounter: 12:45 - Assessment and plan (1) BPH (benign prostatic hyperplasia) Current Visit: Yes Status: Acute Assessment and plan: per hx. Remote TURP 6-7 years ago. Now with urinary frequency; patient reports getting up to void approximately every 45 minutes for the last 2 weeks. UA does not appear to be indicative of UTI. Evaluated by urology who recommended starting oxybutynin. Will need outpatient cystoscopy. Qualifiers: Lower urinary tract symptom presence: unspecified whether lower urinary tract symptoms present Qualified Code(s): N40.0 - Benign prostatic hyperplasia without lower urinary tract symptoms (2) Hyponatremia Current Visit: Yes Status: Acute Assessment and plan: Na 124; appears somewhat chronic from chart review. Remains neurologically intact. Continue IV fluids. Monitor repeat sodium level (3) DVT prophylaxis Current Visit: No Status: Acute Assessment and plan: lovenox - Time Spent With Patient Total time spent is greater than 50% in coordination of care (as documented) at patient's floor/unit and/or counseling patient: - Subjective Interval history: Seen and examined at bedside. Patient is new to me. Information obtained from chart review and patient report. He still complaining of urinary frequency area and says he has to get to the bathroom every 45 minutes to an hour. He is requesting urology consult as he was supposed to see them later on this month. He also reports bilateral leg cramps and abdominal cramping. - Constitutional Vitals: Temp Pulse Resp BP Pulse Ox 98 F 64 14 125/71 98 09/10/17 10:48 09/10/17 10:48 09/10/17 10:48 09/10/17 10:48 09/10/17 10:48 General appearance: Present: A&O X 3, morbidly obese - Head Head exam: Present: atraumatic, normocephalic - Eye Eye exam: Present: PERRL, conjuntiva pink, sclera anicteric Pupils: Present: PERRL - Neck Neck exam general surgery: Present: supple, trachea midline. Absent: lymphadenopathy - Respiratory Respiratory exam: Present: CTAB. Absent: accessory muscle use, rales, rhonchi, wheezes - Cardiovascular Cardiovascular exam: Present: RRR, +S1, +S2. Absent: diastolic murmur, gallop, rubs, systolic murmur - GI/Abdominal GI/Abdominal exam: Present: normal bowel sounds, soft, no peritoneal signs. Absent: distended, tenderness - Extremities Exam Extremities exam: Present: warm, radial pulses palpable and symmetrical. Absent : calf tenderness, cyanotic, pedal edema - Neurological Exam Neurological exam: Present: CN II-XII intact, oriented X3, no focal deficits. Absent: pronater drift, facial droop, speech deficit - Skin Skin exam: Present: dry, intact Internal Medicine: Result - Labs CBC & Chem 7: 09/10/17 05:26 18 05:26 - VTE Documentation of Mechanical Device: Venous foot pump, device Consult Discharge Plan - Plan Referrals: Shalini Wood MD [Primary Care Provider] -
[2017-09-10] MEDS: Mirtazapine 15 MG TABLET PO SCH (20:21)
[2017-09-11] MEDS ORDERED: *HR* Enoxaparin 40 MG/0.4 ML SYRINGE SQ SCH (06:00)
[2017-09-11] MEDS ORDERED: *HR* Enoxaparin 30 MG/0.3 ML SYRINGE SQ SCH (06:00)
[2017-09-11 06:53] VITALS: BP 157/87
[2017-09-11 07:09] LABS: Alanine Aminotransferase 41 Units/L (7-52); Albumin 4.3 g/dL (3.5-5.7); Alkaline Phosphatase 68 Units/L (34-104); Aspartate Amino Transferase 36 Units/L (13-39); BUN/Creatinine Ratio 16 (6-26); Bilirubin,Total 1.2 mg/dL (0.3-1.0); Blood Urea Nitrogen 15 mg/dL (8-23); Calcium 9.3 mg/dL (8.6-10.3); Carbon Dioxide 20 mEq/L (23-29); Chloride 99 mEq/L (98-107); Globulin 2.1 g/dL (2.4-3.5); Glucose 176 mg/dL (70-105); Osmolality,Calculated 265 (280-300); Potassium 4.4 mEq/L (3.5-5.1); Sodium 125 mEq/L (136-145); Total Protein 6.4 g/dL (6.4-8.9); eGFR For African Americans > 60 (> 60); eGFR For Non-African Americans > 60 (> 60)
[2017-09-11 07:49] LABS: Basophils % 0.3 %; Eosinophils # 0.1 K/mcL (0.0-0.6); Eosinophils % 2.3 %; Hematocrit 33.6 % (37.5-50.1); Hemoglobin 12.7 g/dL (12.9-16.9); Immature Granulocytes % 0.3 % (0-4); Immature Platelets 2.9 % (1.1-6.1); Lymphocytes % 31.8 %; Mean Corpuscular Hemoglobin 32.1 pg (28.0-33.3); Mean Corpuscular Volume 84.8 fL (83.0-100.0); Mean Platelet Volume 9.7 fL (9.4-12.4); Monocytes # 0.4 K/mcL (0.0-1.3); Monocytes % 11.9 %; Neutrophils # 1.7 K/mcL (1.6-8.9); Red Blood Count 3.96 M/mcL (4.19-5.50); Red Cell Distribution Width 13.3 % (11.5-14.5); Segmented Neutrophils % 53.4 %
[2017-09-11 07:51] LABS: Mean Corpuscular HGB Conc 37.8 g/dL (31.6-35.5); Platelet Count 88 K/mcL (140-400)
[2017-09-11] MEDS: Topiramate 25 MG TABLET PO SCH (08:05)
[2017-09-11] MEDS: Metoprolol XL (24 HR) Succ 50 MG TAB.ER.24H PO SCH (08:05)
[2017-09-11] MEDS: Cholecalciferol (D-3) 1,000 UNIT TABLET PO SCH (08:05)
[2017-09-11] MEDS: Isosorbide MONOnitrate (24 HR) 30 MG TAB.ER.24H PO SCH (08:05)
[2017-09-11] MEDS: Aspirin Enteric Coated 81 MG Tablet PO SCH (08:05)
[2017-09-11] MEDS: Insulin LISPRO 300 UNITS/3 ML VIAL SQ SCH (08:06)
[2017-09-11] MEDS: Famotidine 20 MG TABLET PO SCH (08:06)
[2017-09-11] MEDS: amLODIPine 5 MG TABLET PO SCH (08:06)
--- NOTE | 2017-09-11 09:57 | Urology Progress Note ---
Date of Encounter: 09/11/17 Time of Encounter: 09:56 - Assessment and Plan (1) BPH (benign prostatic hyperplasia) Current Visit: Yes Status: Acute Assessment and plan: We will consider cystoscopy as an outpatient. Qualifiers: Lower urinary tract symptom presence: unspecified whether lower urinary tract symptoms present Qualified Code(s): N40.0 - Benign prostatic hyperplasia without lower urinary tract symptoms (2) Increased frequency of urination Current Visit: Yes Status: Acute Assessment and plan: Oxybutynin has improved his urinary symptoms. Urology will sign off. Please call with any questions. (3) Diabetes Current Visit: No Status: Acute Qualifiers: Diabetes mellitus type: type 2 Diabetes mellitus fpc insulin use: without intermediate accountant use Diabetes mellitus complication status: with unspecified complications Qualified Code(s): E11.8 - Type 2 diabetes mellitus with unspecified complications Progress Note Narrative: 77-year-old man with bladder spasms and hyponatremia. I started oxybutynin and he reports significant improvement in his urinary frequency. He is pleased with this medicine. Objective Initial Vital Signs Temp Pulse Resp BP Pulse Ox 97.7 F 73 20 125/74 98 09/09/17 08:59 09/09/17 08:59 09/09/17 08:59 09/09/17 08:59 09/09/17 08:59 - General physical appearance Present: well developed, well nourished, no distress - Respiratory Present: normal respiratory effort - Abdomen Present: soft - Labs 09/11/17 06:19 09/11/17 06:19 Diabetes panel 09/11/17 Range/Units 06:19 Sodium 125 L (136-145) mEq/L Potassium 4.4 (3.5-5.1) mEq/L Chloride 99 (98-107) mEq/L Carbon Dioxide 20 L (23-29) mEq/L BUN 15 (8-23) mg/dL Creatinine 0.92 (0.70-1.30) mg/dL Glucose 176 H (70-105) mg/dL Calcium 9.3 (8.6-10.3) mg/dL AST 36 (13-39) Units/L ALT 41 (7-52) Units/L Alkaline Phosphatase 68 (34-104) Units/L Albumin 4.3 (3.5-5.7) g/dL Calcium panel 09/11/17 Range/Units 06:19 Calcium 9.3 (8.6-10.3) mg/dL Albumin 4.3 (3.5-5.7) g/dL Pituitary panel 09/11/17 Range/Units 06:19 Sodium 125 L (136-145) mEq/L Potassium 4.4 (3.5-5.1) mEq/L Chloride 99 (98-107) mEq/L Carbon Dioxide 20 L (23-29) mEq/L BUN 15 (8-23) mg/dL Creatinine 0.92 (0.70-1.30) mg/dL Glucose 176 H (70-105) mg/dL Calcium 9.3 (8.6-10.3) mg/dL Adrenal panel 09/11/17 Range/Units 06:19 Sodium 125 L (136-145) mEq/L Potassium 4.4 (3.5-5.1) mEq/L Chloride 99 (98-107) mEq/L Carbon Dioxide 20 L (23-29) mEq/L BUN 15 (8-23) mg/dL Creatinine 0.92 (0.70-1.30) mg/dL Glucose 176 H (70-105) mg/dL Calcium 9.3 (8.6-10.3) mg/dL Total Bilirubin 1.2 H (0.3-1.0) mg/dL AST 36 (13-39) Units/L ALT 41 (7-52) Units/L Alkaline Phosphatase 68 (34-104) Units/L Albumin 4.3 (3.5-5.7) g/dL - VTE Documentation of Mechanical Device: Venous foot pump, device Consult Discharge Plan - Plan Referrals: Camille Cantu MD [Partnered Physician] - 09/18/17 12:00 pm Vivek Zazueta DO [Partnered Physician] - 09/12/17 1:55 pm Monty Lopez MD [Partnered Physician] - 10/02/17 1:00 pm
--- NOTE | 2017-09-11 10:13 | Discharge Summary ---
- NOTES TO OUTPATIENT PROVIDER Notes to Outpatient Provider: Recommend follow-up within one week Orders not resulted at time of discharge: Pending orders 09/11/17 06:19 Cortisol,Random Routine Thyroid Stimulating Hormone Routine Date of Encounter: 09/11/17 Time of Encounter: 10:13 - Discharge Diagnosis (1) BPH (benign prostatic hyperplasia) Priority: Primary Status: Acute Assessment and Plan: per hx. Remote TURP 6-7 years ago. Presented with urinary frequency; reported getting up to void approximately every 45 minutes for the last 2 weeks. UA not indicative of UTI. Symptoms significantly improved with oxybutynin. Urology followed. Will need outpatient cystoscopy. Qualifiers: Lower urinary tract symptom presence: unspecified whether lower urinary tract symptoms present Qualified Code(s): N40.0 - Benign prostatic hyperplasia without lower urinary tract symptoms (2) Essential hypertension Priority: Primary Status: Acute Assessment and Plan: per hx. BP variable but acceptable. Continue home BP medication. Recommend follow-up with PCP in one week for BP recheck (3) Hyponatremia Priority: Primary Status: Acute Assessment and Plan: chronic per patient. Patient reported long history of hyponatremia. 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 Na 125 at time of discharge. Remains neurologically intact. Has follow-up with nephrology on 09/12. (4) Hypothyroidism Priority: Primary Status: Acute Assessment and Plan: per hx. TSH normal. Cont home levothyroxone Qualifiers: Hypothyroidism type: unspecified Qualified Code(s): E03.9 - Hypothyroidism , unspecified (5) CAD (coronary artery disease) Priority: Secondary Status: Chronic Assessment and Plan: per hx. Asymptomatic. Denied chest pain. Continue home medications. Qualifiers: Coronary Disease-Associated Artery/Lesion type: [place] artery [place] vs. transplanted heart: [place] heart Associated angina: without angina Qualified Code(s): I25.10 - Atherosclerotic heart disease of [place] coronary artery without angina pectoris Hospital course: Please see assessment and plan for Hospital course Discharge discussed with: patient (Seen and examined at bedside. Patient says he actually got some sleep last night and feels significantly better. Would like to go home today. Frequency has significantly decreased. No dysuria. No chest pain or shortness of breath.) - Time Spent with Patient Total time spent providing and/or coordinating discharge services: - Discharge Medications Prescriptions: Oxybutynin [Ditropan] 5 mg PO BID #30 tablet Home Medications: Aspirin Enteric Coated [Aspirin EC] 81 mg PO DAILY 11/11/14 [History] Losartan Potassium [Cozaar] 50 mg PO DAILY 11/11/14 [History] Cholecalciferol (Vitamin D3) [Vitamin D3] 2,000 unit PO DAILY 06/05/15 [History] Atorvastatin [Lipitor] 20 mg PO HS 06/01/16 [History] Dutasteride [Avodart] 0.5 mg PO QWEEK 06/01/16 [History] Mirtazapine 7.5 mg PO HS 04/24/17 [History] Famotidine [Heartburn Prevention] 10 mg PO DAILY 05/16/17 [History] Metformin HCl [Metformin HCl ER] 500 mg PO BID 05/16/17 [History] Metoprolol XL (24 HR) Succ [Toprol Xl] 100 mg PO DAILY 05/16/17 [History] Omeprazole [PriLOSEC] 40 mg PO DAILY 05/16/17 [History] Super Beta Prostate 1 tab PO BID 05/16/17 [History] Topiramate [Topamax] 25 mg PO DAILY 05/16/17 [History] Albuterol Sulfate [Albuterol Inhaler] 2 puff IH Q4HR PRN #1 hfa.aer.ad 05/17/17 [Rx] amLODIPine [Norvasc] 5 mg PO DAILY #30 tablet 05/17/17 [Rx] Doxycycline 100 mg PO BID #10 capsule 08/16/17 [Rx] Phenazopyridine [Pyridium] 100 mg PO TID #30 tablet 08/29/17 [Rx] Clopidogrel [Plavix] 75 mg PO DAILY 09/09/17 [History] Isosorbide MONOnitrate (24 HR) [Imdur] 90 mg PO DAILY 09/09/17 [History] Levothyroxine [Synthroid] 50 mcg PO 30 09/09/17 [History] Tamsulosin [Flomax] 0.4 mg PO DAILY 09/09/17 [History] Oxybutynin [Ditropan] 5 mg PO BID #30 tablet 09/11/17 [Rx] Allergies/Adverse Reactions: 3 Allergy/AdvReac Type Severity Reaction Status Date / Time cephalexin AdvReac Rash Verified 09/09/17 11:38 ciprofloxacin [From Cipro] AdvReac Rash Verified 09/09/17 11:38 fenofibrate [From Tricor] AdvReac Rash Verified 09/09/17 11:38 hydrocodone AdvReac Dizziness Verified 09/09/17 11:38 Oxycodone [From Percocet] AdvReac Rash Verified 09/09/17 11:38 sulfamethoxazole AdvReac Rash Verified 09/09/17 11:38 [From Bactrim] tramadol AdvReac Rash Verified 09/09/17 11:38 trimethoprim [From Bactrim] AdvReac Rash Verified 09/09/17 11:38 Date of admission: 09/10/17 08:03 Primary care physician: Shalini Wood MD Discharging clinician: Rachael Sanchez Anticipated date of discharge: 09/11/17 - Constitutional Vitals: Temp Pulse Resp BP Pulse Ox 98.0 F 65 14 157/87 96 09/11/17 06:52 09/11/17 06:52 09/11/17 06:52 09/11/17 06:52 09/11/17 08:10 General appearance: Present: A&O X 3, morbidly obese - Head Head exam: Present: atraumatic, normocephalic - Eye Eye exam: Present: PERRL, conjuntiva pink, sclera anicteric Pupils: Present: PERRL - Neck Neck exam general surgery: Present: supple, trachea midline. Absent: lymphadenopathy - Respiratory Respiratory exam: Present: CTAB. Absent: accessory muscle use, rales, rhonchi, wheezes - Cardiovascular Cardiovascular exam: Present: RRR, +S1, +S2. Absent: diastolic murmur, gallop, rubs, systolic murmur - GI/Abdominal GI/Abdominal exam: Present: normal bowel sounds, soft, no peritoneal signs. Absent: distended, tenderness - Extremities Exam Extremities exam: Present: warm, radial pulses palpable and symmetrical. Absent : calf tenderness, cyanotic, pedal edema - Neurological Exam Neurological exam: Present: CN II-XII intact, oriented X3, no focal deficits. Absent: pronater drift, facial droop, speech deficit - Skin Skin exam: Present: dry, intact - Patient Status Disposition: Home, Self-Care Condition: Good Functional capacity at discharge: independent ambulation Overall status at discharge: patient is back to baseline - Discharge Instructions Instructions: Benign Prostatic Hypertrophy (DC), Oxybutynin (By mouth), Hyponatremia (DC) Follow Up With: Camille Cantu MD [Partnered Physician] - 09/18/17 12:00 pm Vivek Zazueta DO [Partnered Physician] - 09/12/17 1:55 pm Monty Lopez MD [Partnered Physician] - 10/02/17 1:00 pm - Diet and Activity Activity: increase activity as tolerated Diet: diabetic diet, low fat, low cholesterol - VTE Documentation of Mechanical Device: Venous foot pump, device
[2017-09-11 10:17] LABS: Thyroid Stimulating Hormone 5.131 mcIU/mL (0.340-5.600)
--- NOTE | 2017-09-12 16:03 | Electrocardiograph Report ---
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
== END 2017-09-11 11:51 | disposition home or self-care (01) | DRG 641 ==
LOC: 3BNU 08:58 → EMEROO 08:58 → 3BNU 13:04
PROVIDERS: ADMIT Family Medicine; ATTEND Family Medicine

== ENCOUNTER 2018-06-08 19:43 | Observation (INO) ==
[2018-06-08 20:39] LABS: Bilirubin,Urine Small (Negative); Blood,Urine Moderate (Negative); Clarity,Urine Cloudy (Clear); Color,Urine Orange (Yellow); Glucose,Urine (UA) Normal (Normal); Ketones,Urine 15 mg/dL (Negative); Leukocyte Esterase,Urine Small (Negative); Nitrite,Urine Positive (Negative); Protein,Urine 100 mg/dL (Neg-Trace); Specific Gravity,Urine 1.022 (1.010-1.025); Urobilinogen,Urine Normal (Normal)
[2018-06-08 20:41] LABS: Bacteria,Urine Few per hpf (None-Few); Squamous Epithelial Cell,Urine Many per lpf (None-Few); WBC,Urine 50-100 per hpf (0-3)
--- NOTE | 2018-06-08 20:46 | Emergency Department Note ---
Disposition Clinical Impression: Atrial fibrillation with rapid ventricular response, Non-ST elevation MD (NSTEMI), Altered level of consciousness UTI (urinary tract infection) Qualifiers: Urinary tract infection type: site unspecified Hematuria presence: without sandhya turia Qualified Code(s): N39.0 - Urinary tract infection, site not specified Disposition: Admitted As Inpatient Condition: Fair Referrals: Oliver Redman DO [Primary Care Provider] - Forms: ED Satisfaction Letter Time of Disposition: 21:49 General Adult HPI - General Chief complaint: ED Altered Mental Status Stated complaint: AMS Time Seen by Provider: 06/08/18 20:11 Source: patient Limitations: no limitations Nursing Notes Reviewed: Yes Vital Signs Reviewed: Yes - History of Present Illness HPI Narrative: I was called to the room to emergently see the patient and he presented c onfusion and of note according to his daughter he was driving yesterday and they found him today between the bed and the wall and confused and incontinent of stool. The patient does give a seemingly reliable history and denies any pain in the head or neck or chest but does have abdominal pain. He denies any localized numbness or weakness of extremities, slurred speech or facial droop. Daughter states that he is confused at the present time. He does have a history of headaches and recently had his Topamax prescription changed. Social history: No smoking or alcohol Pain Scale: 0 - Related Data Home Medications Medication Instructions Recorded Confirmed Aspirin Enteric Coated [Aspirin EC] 81 mg PO DAILY 11/11/14 04/27/18 Losartan Potassium [Cozaar] 50 mg PO DAILY 11/11/14 04/27/18 Cholecalciferol (Vitamin D3) 2,000 unit PO DAILY 06/05/15 04/27/18 [Vitamin D3] Atorvastatin [Lipitor] 20 mg PO HS 06/01/16 04/27/18 Dutasteride [Avodart] 0.5 mg PO QWEEK 06/01/16 04/27/18 Mirtazapine 7.5 mg PO HS 04/24/17 04/27/18 Famotidine [Heartburn Prevention] 10 mg PO DAILY 05/16/17 04/27/18 Metformin HCl [Metformin ER 500 mg PO BID 05/16/17 04/27/18 Gastric] Metoprolol XL (24 HR) Succ [Toprol 100 mg PO DAILY 05/16/17 04/27/18 Xl] Omeprazole [PriLOSEC] 40 mg PO DAILY 05/16/17 04/27/18 Topiramate [Topamax] 50 mg PO DAILY 05/16/17 04/27/18 Clopidogrel [Plavix] 75 mg PO DAILY 09/09/17 04/27/18 Isosorbide MONOnitrate (24 HR) 120 mg PO DAILY 09/09/17 04/27/18 [Imdur] Levothyroxine [Synthroid] [place] [address]/09/17 04/27/18 Tamsulosin [Flomax] 0.4 mg PO DAILY 09/09/17 04/27/18 Previous Rx's Medication Instructions Recorded Albuterol Sulfate [Albuterol 2 puff IH Q4HR PRN #1 hfa.aer.ad 05/17/17 Inhaler] amLODIPine [Norvasc] 5 mg PO DAILY #30 tablet 05/17/17 Allergies Allergy/AdvReac Type Severity Reaction Status Date / Time cephalexin AdvReac Rash Verified 04/27/18 12:56 ciprofloxacin [From Cipro] AdvReac Rash Verified 04/27/18 12:56 fenofibrate [From Tricor] AdvReac Rash Verified 04/27/18 12:56 hydrocodone AdvReac Dizziness Verified 04/27/18 12:56 oxycodone [From Percocet] AdvReac Rash Verified 04/27/18 12:56 sulfamethoxazole AdvReac Rash Verified 04/27/18 12:56 [From Bactrim] tramadol AdvReac Rash Verified 04/27/18 12:56 trimethoprim [From Bactrim] AdvReac Rash Verified 04/27/18 12:56 All systems ED: reviewed and negative except as stated. Past Medical History - Past Medical History Medical history: Reports: CHF, diabetes, GERD, hypertension, liver disease, migraine, thyroid disease, TIA Surgical history: Reports: appendectomy, cholecystectomy Psychiatric history: Reports: anxiety, depression - Social History Smoking Status: Never smoker Smokeless Tobacco Status: No Alcohol use: Reports: none Drug use: Reports: none Physical Exam CONSTITUTIONAL: Well-appearing; well-nourished; A&O X3he does know the name of the hospital and the month and the year3, in no apparent distress HEAD: Normocephalic; atraumatic. EYES: PERRL, EOMI, no scleral icterus NOSE: The nose is normal in appearance without rhinorrhea NECK: Supple without rigidity, no ROSELINE RESP: Normal chest excursion with respiration; breath sounds clear and equal bilaterally; no wheezes, rhonchi, or rales CARD: Regular rhythm, without murmurs, rub or gallop ABD: Minimally distended, does have minimal generalized discomfort palpation but the entire abdomen is soft without rigidity, rebound or guarding SKIN: Normal for age and race; warm and dry; no apparent lesions, no rash NEUROLOGICAL: Patient is alert and oriented times three. Cranial nerves III- XII are intact. Sensory and motor functions are intact. Strength is 5/5 for flexion and extension in all 4 extremities. Finger to nose testing is equal and normal bilaterally. - General Limitations: no limitations General appearance: alert Course Vital Signs Temperature 99.7 F H 06/08/18 20:13 Pulse Rate 116 06/08/18 20:13 Respiratory Rate 20 06/08/18 20:13 Blood Pressure 159/86 06/08/18 20:13 O2 Sat by Pulse Oximetry 97 06/08/18 20:13 Temperature 99.7 F H 06/08/18 20:13 Pulse Rate 107 06/08/18 21:12 Respiratory Rate 18 06/08/18 21:12 Blood Pressure 137/99 06/08/18 21:12 O2 Sat by Pulse Oximetry 96 06/08/18 21:12 Oxygen Delivery Oxygen Delivery Room Air Medical Decision Making - [facility] Narrative Medical decision making narrative: I did review his EKG showing atrial fibrillation with a rapid ventricular response with a rate of 122 bpm and he does have evidence of anterior lateral ST depression. Patient does specifically deny any chest pain. Receive IV fluids and see if this helps with his rate. Labs as well as CAT scan of the head and abdomen are pending. The patient will be admitted. 2046 The patient does not have evidence of intracranial hemorrhage or mass on the head CT, I also reviewed the abdominal CT which does show some stranding around the bladder and in fact he does have positive nitrite in the urine so I did write for Zosyn 3.375 mg because he is allergic to quinolones and Bactrim and cephalexin so he will be admitted to the hospital and I also did give a IV fluid bolus 2120 Patient does have urinary tract infection and is treated with Zosyn, she also does have elevated troponin level 0.19 and the patient will be admitted for monitoring and further evaluation of possible cardiac etiology. He did have atrial fibrillation with rapid ventricular response 2148 I spoke w the hospitalist who accepts for admission 2006 - Medical Records Medical records reviewed: Yes I reviewed the patient's medical records. - Lab Data Lab results reviewed: Yes I reviewed the patient's lab results. Result diagrams: 06/08/18 21:00 06/08/18 21:00 Lab Results 06/08/18 06/08/18 06/08/18 Range/Units 20:17 20:26 20:26 WBC (4.3-11.1) K/mcL RBC (4.19-5.50) M/mcL Hgb (12.9-16.9) g/dL Hct (37.5-50.1) % MCV (83.0-100.0) fL MCH (28.0-33.3) pg MCHC (31.6-35.5) g/dL RDW (11.5-14.5) % Plt Count (140-400) K/mcL MPV (9.4-12.4) fL Immature Gran % (0-4) % Seg Neutrophils % % Lymphocytes % % Monocytes % % Eosinophils % % Basophils % % Neutrophils # (1.6-8.9) K/mcL Lymphocytes # (0.6-4.6) K/mcL Monocytes # (0.0-1.3) K/mcL Eosinophils # (0.0-0.6) K/mcL Basophils # (0.0-0.2) K/mcL Immature Plt Fraction (1.1-6.1) % Sodium (136-145) mEq/L Potassium (3.5-5.1) mEq/L Chloride (98-107) mEq/L Carbon Dioxide (23-29) mEq/L BUN (8-23) mg/dL Creatinine (0.70-1.30) mg/dL Est GFR ( Amer) (> 60) Est GFR (Non-Af Amer) (> 60) BUN/Creatinine Ratio (6-26) Glucose (70-105) mg/dL POC Glucose 192 H (70-99) mg/dL Calculated Osmolality (280-300) Calcium (8.6-10.3) mg/dL Total Bilirubin (0.3-1.0) mg/dL Direct Bilirubin (0.0-0.2) mg/dL Indirect Bilirubin (0.0-1.2) mg/dL AST (13-39) Units/L ALT (7-52) Units/L Alkaline Phosphatase (34-104) Units/L Troponin I (< 0.04) ng/mL Serum Total Protein (6.4-8.9) g/dL Albumin (3.5-5.7) g/dL Globulin (2.4-3.5) g/dL Albumin/Globulin Ratio (1.1-2.2) Urine Color [place] A (Yellow) Urine Clarity Cloudy A (Clear) Urine pH 5.0 (5.0-8.0) pH Units Ur Specific [place] 1.022 (1.010-1.025) Urine Protein 100 H (Neg-Trace) mg/dL Urine Glucose (UA) Normal (Normal) mg/dL Urine Ketones 15 H (Negative) mg/dL Urine Blood Moderate H (Negative) Urine Nitrite Positive A (Negative) Urine Bilirubin Small H (Negative) Urine Urobilinogen Normal (Normal) mg/dL Ur Leukocyte Esterase Small H (Negative) Urine Microscopic RBC 5-15 H (0-3) per hpf Urine Microscopic WBC 50-100 H (0-3) per hpf Ur Squamous Epith Cells Many H (None-Few) per lpf Urine Bacteria Few (None-Few) per hpf Hyaline Casts Few (None-Few) per lpf Ur Culture Indicated? NO. A (NO) Urine Opiates Screen Negative (Dmoqge=808) ng/mL Ur Barbiturates Screen Negative (Epgxnk=300) ng/mL Ur Phencyclidine Scrn Negative (Cutoff=25) ng/mL Ur Amphetamines Screen Negative (Eeislv=2368) ng/mL U Benzodiazepines Scrn Negative (Ztzcyp=956) ng/mL Urine Cocaine Screen Negative (Cutoff= 300) ng/mL U Marijuana (THC) Screen Negative (Cutoff = 50) ng/mL Ur Drug Screen Interp See Below Ethyl Alcohol (Less than 10) mg/dL 06/08/18 06/08/18 Range/Units 21:00 21:00 WBC 9.3 D (4.3-11.1) K/mcL RBC 4.42 (4.19-5.50) M/mcL Hgb 14.1 (12.9-16.9) g/dL Hct 37.4 L (37.5-50.1) % MCV 84.6 (83.0-100.0) fL MCH 31.9 (28.0-33.3) pg MCHC 37.7 H (31.6-35.5) g/dL RDW 12.6 (11.5-14.5) % Plt Count 87 L (140-400) K/mcL MPV 10.0 (9.4-12.4) fL Immature Gran % 0.4 (0-4) % Seg Neutrophils % 82.5 % Lymphocytes % 6.7 % Monocytes % 10.3 % Eosinophils % 0.0 % Basophils % 0.1 % Neutrophils # 7.7 (1.6-8.9) K/mcL Lymphocytes # 0.6 (0.6-4.6) K/mcL Monocytes # 1.0 (0.0-1.3) K/mcL Eosinophils # 0.0 (0.0-0.6) K/mcL Basophils # 0.0 (0.0-0.2) K/mcL Immature Plt Fraction 3.4 (1.1-6.1) % Sodium 128 L (136-145) mEq/L Potassium 4.1 (3.5-5.1) mEq/L Chloride 97 L (98-107) mEq/L Carbon Dioxide 18 L (23-29) mEq/L BUN 14 (8-23) mg/dL Creatinine 0.93 (0.70-1.30) mg/dL Est GFR ( Amer) > 60 (> 60) Est GFR (Non-Af Amer) > 60 (> 60) BUN/Creatinine Ratio 15 (6-26) Glucose 174 H (70-105) mg/dL POC Glucose (70-99) mg/dL Calculated Osmolality 271 L (280-300) Calcium 9.6 (8.6-10.3) mg/dL Total Bilirubin 3.0 H (0.3-1.0) mg/dL Direct Bilirubin 0.7 H (0.0-0.2) mg/dL Indirect Bilirubin 2.3 H (0.0-1.2) mg/dL AST 30 (13-39) Units/L ALT 31 (7-52) Units/L Alkaline Phosphatase 54 (34-104) Units/L Troponin I 0.19 H* (< 0.04) ng/mL Serum Total Protein 7.4 (6.4-8.9) g/dL Albumin 4.7 (3.5-5.7) g/dL Globulin 2.7 (2.4-3.5) g/dL Albumin/Globulin Ratio 1.7 (1.1-2.2) Urine Color (Yellow) Urine Clarity (Clear) Urine pH (5.0-8.0) pH Units Ur Specific [place] (1.010-1.025) Urine Protein (Neg-Trace) mg/dL Urine Glucose (UA) (Normal) mg/dL Urine Ketones (Negative) mg/dL Urine Blood (Negative) Urine Nitrite (Negative) Urine Bilirubin (Negative) Urine Urobilinogen (Normal) mg/dL Ur Leukocyte Esterase (Negative) Urine Microscopic RBC (0-3) per hpf Urine Microscopic WBC (0-3) per hpf Ur Squamous Epith Cells (None-Few) per lpf Urine Bacteria (None-Few) per hpf Hyaline Casts (None-Few) per lpf Ur Culture Indicated? (NO) Urine Opiates Screen (Ubvibo=244) ng/mL Ur Barbiturates Screen (Vknrju=206) ng/mL Ur Phencyclidine Scrn (Cutoff=25) ng/mL Ur Amphetamines Screen (Cmawhl=5002) ng/mL U Benzodiazepines Scrn (Zsqpza=208) ng/mL Urine Cocaine Screen (Cutoff= 300) ng/mL U Marijuana (THC) Screen (Cutoff = 50) ng/mL Ur Drug Screen Interp Ethyl Alcohol < 10 (Less than 10) mg/dL - Radiology Data Radiology results reviewed: Yes I reviewed the patient's radiology results. Critical Care Time Critical Care Time: Yes Total Critical Care Time: 30 Attestation: 30 minutes of critical care time were spent with the patient with atrial fibrillation with rapid ventricular response, altered level of consciousness, evaluation status post fall and incontinence, stranding around the bladder and urinary tract infection and antibiotic administration
[2018-06-08 20:47] LABS: Amphetamine Screen,Urine Negative ng/mL (Cutoff=1000); Barbiturate Screen,Urine Negative ng/mL (Cutoff=200); Benzodiazepines Screen,Urine Negative ng/mL (Cutoff=200); Cannabinoid Screen,Urine Negative ng/mL (Cutoff = 50); Cocaine Screen,Urine Negative ng/mL (Cutoff= 300); Opiate Screen,Urine Negative ng/mL (Cutoff=300); Phencyclidine Screen,Urine Negative ng/mL (Cutoff=25)
[2018-06-08] MEDS ORDERED: 0.9 % Sodium Chloride 1,000 ML IVC ONE (20:47)
[2018-06-08 20:54] LABS: Hyaline Casts,Urine Few per lpf (None-Few)
[2018-06-08 21:10] LABS: Basophils % 0.1 %
[2018-06-08] MEDS ORDERED: Piperacillin/Tazobactam 3.375 GM in 0.9 % Sodium Chloride Mini Bag 100 ML IVPB ONE (21:14)
[2018-06-08 21:38] LABS: Hematocrit 37.4 % (37.5-50.1); Hemoglobin 14.1 g/dL (12.9-16.9); Immature Granulocytes % 0.4 % (0-4); Immature Platelets 3.4 % (1.1-6.1); Lymphocytes # 0.6 K/mcL (0.6-4.6); Lymphocytes % 6.7 %; Mean Corpuscular Hemoglobin 31.9 pg (28.0-33.3); Mean Corpuscular Volume 84.6 fL (83.0-100.0); Monocytes % 10.3 %; Neutrophils # 7.7 K/mcL (1.6-8.9); Red Blood Count 4.42 M/mcL (4.19-5.50); Red Cell Distribution Width 12.6 % (11.5-14.5); Segmented Neutrophils % 82.5 %
[2018-06-08 21:42] LABS: Alanine Aminotransferase 31 Units/L (7-52); Albumin 4.7 g/dL (3.5-5.7); Albumin/Globulin Ratio 1.7 (1.1-2.2); Alkaline Phosphatase 54 Units/L (34-104); Aspartate Amino Transferase 30 Units/L (13-39); BUN/Creatinine Ratio 15 (6-26); Bilirubin,Direct 0.7 mg/dL (0.0-0.2); Bilirubin,Indirect 2.3 mg/dL (0.0-1.2); Blood Urea Nitrogen 14 mg/dL (8-23); Calcium 9.6 mg/dL (8.6-10.3); Carbon Dioxide 18 mEq/L (23-29); Chloride 97 mEq/L (98-107); Ethanol < 10 mg/dL (Less than 10); Globulin 2.7 g/dL (2.4-3.5); Glucose 174 mg/dL (70-105); Osmolality,Calculated 271 (280-300); Potassium 4.1 mEq/L (3.5-5.1); Sodium 128 mEq/L (136-145); Total Protein 7.4 g/dL (6.4-8.9); Troponin I 0.19 ng/mL (< 0.04); eGFR For Non-African Americans > 60 (> 60)
[2018-06-08 21:45] LABS: Mean Corpuscular HGB Conc 37.7 g/dL (31.6-35.5); Platelet Count 87 K/mcL (140-400)
[2018-06-08] MEDS ORDERED: Aspirin 325 MG TABLET PO ONE (22:12)
[2018-06-08] MEDS ORDERED: Aspirin 81 MG TAB.CHEW PO ONE (22:30)
[2018-06-08] MEDS ORDERED: *HR* LORazepam 2 MG/ML VIAL IVP ONE (22:42)
[2018-06-08] MEDS ORDERED: Dextrose 4 GM Chewable Tablets PO PRN (23:52)
[2018-06-08] MEDS ORDERED: Dextrose Gel 15 GM/37.5 ML TUBE PO PRN (23:52)
[2018-06-09 00:11] LABS: Creatine Kinase 263 Units/L (30-223)
[2018-06-09 00:32] LABS: INR 1.4; Prothrombin Time 15.2 Seconds (9.4-12.1)
[2018-06-09 00:35] LABS: Activated Partial Thrombo Time 27.8 Seconds (26.0-36.0)
[2018-06-09] MEDS: Insulin LISPRO 300 UNITS/3 ML VIAL SQ SCH ×4 (02:02→17:50)
--- NOTE | 2018-06-09 04:02 | Internal Med History&Physical ---
Date of Encounter: 06/08/18 Time of Encounter: 23:00 Internal Medicine - H&P: HPI Chief complaint: AMS Admitted From: Emergency Dept Plans for Post Hospital Care: Home History of present illness: Minh Murray is a 77 year old male with a history of hemachromatosis was diagnosed in the followed with serial CBCs and intermittent phlebotomy, BPH status post prostate resection, heart failure, coronary artery disease with stent placement, thyroid disease and CVA. He is brought in by family members due to altered mental status that has been present for the past 5 days. They state that he has had intermittent episodes of confusion and bowel incontinence. He has also become more aggressive which is unlike him as he states he is generally calm and mild-mannered. There are no localizing features of numbness or weakness, slurred speech or facial drooping. He was found that his home in the evening slumped between his bed and the wall and incontinent on himself. They state that he does have a history of headaches, diagnosed with complex migraines and recently had his to per roommate dose increased and metformin frequency reduced to once a day but otherwise no other changes. No reported history of smoking or alcohol use or illicit drug use. In the ER he was hemodynamically stable however there was concern for atrial fibrillation with RVR based on telemetry but this was not conclusive as the patient was shaking. Head CT done was unremarkable. Lab work revealed low sodium, low c hloride and a troponin elevation of 0.19. He was also seen to have a remarkably positive UA and abdomen/pelvis CT from findings of fat stranding around the urinary bladder concerning for cystitis. He was given a dose of piperacillin- tazobactam and admitted for further care. Of note, prior to his admission in the ER he was given a dose of lorazepam due to agitation and therefore at the time of assessment he was fast asleep. Past Med Surg Social Fam HX - Past Medical History Medical history: CHF, diabetes, GERD, hypertension, liver disease, migraine, thyroid disease, TIA Psychiatric history: anxiety, depression - Past Surgical History Surgical History: appendectomy, cholecystectomy - Social History Smoking Status: Never smoker Smokeless Tobacco Status: No Alcohol use: none Drug use: none - Family History Father Adopted: Yes Internal Medicine - H&P: Meds Aspirin Enteric Coated [Aspirin EC] 81 mg PO DAILY 11/11/14 [History] Losartan Potassium [Cozaar] 50 mg PO DAILY 11/11/14 [History] Cholecalciferol (Vitamin D3) [Vitamin D3] 2,000 unit PO DAILY 06/05/15 [History] Atorvastatin [Lipitor] 20 mg PO HS 06/01/16 [History] Dutasteride [Avodart] 0.5 mg PO QWEEK 06/01/16 [History] Mirtazapine 7.5 mg PO HS 04/24/17 [History] Famotidine [Heartburn Prevention] 10 mg PO HS 05/16/17 [History] Metformin HCl [Metformin ER Gastric] 500 mg PO QPM 05/16/17 [History] Metoprolol XL (24 HR) Succ [Toprol Xl] 100 mg PO DAILY 05/16/17 [History] Omeprazole [PriLOSEC] 40 mg PO DAILY 05/16/17 [History] Topiramate [Topamax] 50 mg PO HS 05/16/17 [History] Albuterol Sulfate [Albuterol Inhaler] 2 puff IH Q4HR PRN #1 [email or web address] 05/17/17 [Rx] amLODIPine [Norvasc] 5 mg PO DAILY #30 tablet 05/17/17 [Rx] Clopidogrel [Plavix] 75 mg PO DAILY 09/09/17 [History] Isosorbide MONOnitrate (24 HR) [Imdur] 120 mg PO DAILY 09/09/17 [History] Levothyroxine [Synthroid] 50 mcg PO 0630 09/09/17 [History] Tamsulosin [Flomax] 0.4 mg PO QPM 09/09/17 [History] Mirabegron [Myrbetriq] 50 mg PO HS 06/09/18 [History] Topiramate [Topamax] 25 mg PO DAILY 06/09/18 [History] Allergy/AdvReac Type Severity Reaction Status Date / Time cephalexin AdvReac Rash Verified 04/27/18 12:56 ciprofloxacin [From Cipro] AdvReac Rash Verified 04/27/18 12:56 fenofibrate [From Tricor] AdvReac Rash Verified 04/27/18 12:56 hydrocodone AdvReac Dizziness Verified 04/27/18 12:56 oxycodone [From Percocet] AdvReac Rash Verified 04/27/18 12:56 sulfamethoxazole AdvReac Rash Verified 04/27/18 12:56 [From Bactrim] tramadol AdvReac Rash Verified 04/27/18 12:56 trimethoprim [From Bactrim] AdvReac Rash Verified 04/27/18 12:56 All Systems PM: A 10-system review of systems was performed and is negative for pertinent findings except as documented above in the HPI. - Constitutional Vitals: Temp Pulse Resp BP Pulse Ox 98.7 F 99 16 159/94 96 06/09/18 01:26 06/09/18 01:26 06/09/18 01:26 06/09/18 01:26 06/09/18 01:26 Exam: Vitals: Reviewed General: Obese, sleeping, NAD Skin: Warm, dry. HEENT: Moist mucous membranes. No conjunctivae pallor. Neck: No lymphadenopathy. No JVD. Chest: Normal thoracic expansion. Normal breath sounds. Heart: Normal S1 & S2; rhythmic. Abdomen: Non-distended, soft and non-tender to palpation. Extremities: No clubbing, cyanosis or edema. Normal distal pulses. Neurological: Unable to assess due to somnolence Psych: Unable to assess due to somnolence. Internal Med - H&P Results - Labs CBC & Chem 7: 06/08/18 21:00 06/08/18 21:00 Labs: Short CBC 06/08/18 Range/Units 21:00 WBC 9.3 D (4.3-11.1) K/mcL Hgb 14.1 (12.9-16.9) g/dL Hct 37.4 L (37.5-50.1) % Plt Count 87 L (140-400) K/mcL Neutrophils # 7.7 (1.6-8.9) K/mcL BMP 06/08/18 21:00 Sodium 128 L Potassium 4.1 Chloride 97 L Carbon Dioxide 18 L BUN 14 Creatinine 0.93 Glucose 174 H Calcium 9.6 Cardiac Enzymes 06/08/18 Range/Units 21:00 Troponin I 0.19 H* (< 0.04) ng/mL Liver Function 06/08/18 Range/Units 21:00 Total Bilirubin 3.0 H (0.3-1.0) mg/dL Direct Bilirubin 0.7 H (0.0-0.2) mg/dL AST 30 (13-39) Units/L ALT 31 (7-52) Units/L Alkaline Phosphatase 54 (34-104) Units/L Albumin 4.7 (3.5-5.7) g/dL Urine 06/08/18 Range/Units 20:26 Urine Color [place] A (Yellow) Urine Clarity Cloudy A (Clear) Urine pH 5.0 (5.0-8.0) pH Units Ur Specific [place] 1.022 (1.010-1.025) Urine Protein 100 H (Neg-Trace) mg/dL Urine Glucose (UA) Normal (Normal) mg/dL - Impressions ITS Impressions Abdomen/Pelvis CT 06/08/18 20:12 IMPRESSION: Mild fat stranding surrounding the urinary bladder. Correlate with any clinical evidence of urinary tract infection. Otherwise, no acute abnormality detected. Unchanged 1 cm pleural based nodule in the right lower lung. Again, follow-up in 1 year is recommended to ensure stability over a 2 year period. D/ / Geoff Yee MD / Geoff Yee MD Interpreting Provider: Geoff Yee MD Chest X-Ray 06/08/18 20:12 IMPRESSION: Small right pleural effusion is suspected. No focal consolidation. D/ / 06/08/2018 20:35:30 Fernandez Bojorquez MD / [facility] Interpreting Provider: Fernandez Bojorquez MD Head CT 06/08/18 20:12 IMPRESSION: No acute intracranial abnormality. D/ / Geoff Yee MD / Geoff Yee MD Interpreting Provider: Geoff Yee MD - Assessment and Plan (1) Altered level of consciousness Current Visit: Yes Status: Acute Assessment and plan: The etiology is unclear. It could very well be secondary to a UTI as evidenced by his UA and pelvis CT findings as many times an acute encephalopathic state is the form of presentation for UTIs in the elderly. We shall treat him for this. However given his neurologic history of CVA and complex migraines requiring neurology follow up with medication titration, he will benefit from neurology consultation while here. We will also get a brain MRI for evaluation as long as he remains cooperative with this. (2) UTI (urinary tract infection) Current Visit: Yes Status: Acute Assessment and plan: Will start empiric abx and send urine for culture. Qualifiers: Urinary tract infection type: acute cystitis Hematuria presence: without hematuria Qualified Code(s): N30.00 - Acute cystitis without hematuria (3) Elevated troponin Current Visit: Yes Status: Acute Assessment and plan: At this time he has no acute clinical or electrocardiographic findings that are concerning for acute coronary syndrome. There is unclear if his troponin elevation is secondary to his current infectious state or an underlying neurologic condition. We will monitor him on telemetry and continue to trend these levels. For now there is no indication for anticoagulant therapy till deemed otherwise. (4) Electrolyte imbalance Current Visit: Yes Status: Acute Assessment and plan: As evidenced by hyponatremia and hypochloremia. Based on review of old records it seems to be a chronic issue which may have acutely worsened in the setting of poor oral intake with subsequent dehydration. Will provide normal saline hydration and reassess values. (5) Atrial fibrillation with rapid ventricular response Current Visit: Yes Status: Acute Assessment and plan: On physical exam he seems to have a regular rate/rhythm. Unclear if the initial EKG was confounded with motion artifacts. The family members report he has no history of this. Will obtain another EKG in a calmer setting and monitor him on telemetry. (6) Diabetes Current Visit: Yes Status: Acute Assessment and plan: Will place on low dose insulin sliding scale. Qualifiers: Diabetes mellitus type: type 2 Diabetes mellitus long-term insulin use: without terminal block assembler use Diabetes mellitus complication status: with unspecified complications Qualified Code(s): E11.8 - Type 2 diabetes mellitus with unspecified complications (7) Essential hypertension Current Visit: Yes Status: Acute Assessment and plan: Will resume home oral antihypertensive therapy once confirmed. (8) CAD (coronary artery disease) Current Visit: Yes Status: Chronic Assessment and plan: No clinical or electrocardiographic signs of ACS. Continue antiplatelet and statin therapy. Qualifiers: Coronary Disease-Associated Artery/Lesion type: [place] artery [place] vs. transplanted heart: [place] heart Associated angina: without angina Qualified Code(s): I25.10 - Atherosclerotic heart disease of [place] coronary artery without angina pectoris (9) Hemochromatosis Current Visit: Yes Status: Chronic Assessment and plan: Current hemoglobin is within normal limits. He will continue to follow as an outpatient with hematology. Qualifiers: Hemochromatosis type: unspecified Qualified Code(s): E83.119 - Hemochromatosis, unspecified - Time Spent With Patient Total time spent is greater than 50% in coordination of care (as documented) at patient's floor/unit and/or counseling patient: Greater than 35 minutes
[2018-06-09] MEDS: *HR* Heparin 5,000 UNIT/ML VIAL SQ SCH ×3 (05:17→21:57)
[2018-06-09] MEDS: 0.9 % Sodium Chloride 1,000 ML IVC SCH (05:17)
[2018-06-09 05:52] LABS: BUN/Creatinine Ratio 18 (6-26); Blood Urea Nitrogen 13 mg/dL (8-23); Calcium 9.1 mg/dL (8.6-10.3); Carbon Dioxide 17 mEq/L (23-29); Chloride 99 mEq/L (98-107); Glucose 162 mg/dL (70-105); Osmolality,Calculated 274 (280-300); Sodium 130 mEq/L (136-145); eGFR For Non-African Americans > 60 (> 60)
[2018-06-09 05:53] LABS: Albumin 4.2 g/dL (3.5-5.7); Albumin/Globulin Ratio 1.7 (1.1-2.2); Bilirubin,Direct 0.8 mg/dL (0.0-0.2); Bilirubin,Indirect 2.2 mg/dL (0.0-1.2); Globulin 2.5 g/dL (2.4-3.5); Total Protein 6.7 g/dL (6.4-8.9)
[2018-06-09 05:58] LABS: Basophils % 0.1 %; Segmented Neutrophils % 78.8 %
[2018-06-09 06:01] LABS: Hematocrit 35.3 % (37.5-50.1); Hemoglobin 13.5 g/dL (12.9-16.9); Immature Granulocytes % 1.2 % (0-4); Immature Platelets 2.4 % (1.1-6.1); Lymphocytes # 0.8 K/mcL (0.6-4.6); Lymphocytes % 9.8 %; Mean Corpuscular Hemoglobin 32.2 pg (28.0-33.3); Mean Corpuscular Volume 84.2 fL (83.0-100.0); Mean Platelet Volume 9.9 fL (9.4-12.4); Monocytes # 0.9 K/mcL (0.0-1.3); Monocytes % 10.1 %; Neutrophils # 6.7 K/mcL (1.6-8.9); Red Blood Count 4.19 M/mcL (4.19-5.50); Red Cell Distribution Width 12.8 % (11.5-14.5)
[2018-06-09 06:04] LABS: Mean Corpuscular HGB Conc 38.2 g/dL (31.6-35.5); Platelet Count 83 K/mcL (140-400)
--- NOTE | 2018-06-09 06:11 | Event Note ---
Date of Encounter: 06/09/18 Time of Encounter: 06:09 Troponin level seen to be increasing. The patient remains clinically and hemodynamically stable without any complaints. Repeat EKG done shows no acute signs of ischemia. Will consult cardiology for recommendations on further measures.
[2018-06-09] MEDS: Piperacillin/Tazobactam 3.375 GM in 0.9 % Sodium Chloride Mini Bag 100 ML IVPB SCH ×2 (08:31→15:50)
[2018-06-09] MEDS ORDERED: amLODIPine 5 MG TABLET PO SCH (09:00)
[2018-06-09] MEDS ORDERED: cefTRIAXone 1,000 MG in 0.9 % Sodium Chloride Mini Bag 100 ML IVPB SCH (09:00)
--- NOTE | 2018-06-09 11:03 | Internal Med Progress Note ---
Hospitalist Progress Note - Encounter Date of Encounter: 06/09/18 Time of Encounter: 11:03 - Subjective Interval History: Ration was seen and examined at bedside currently patient denies any chest pain is oriented to name and place he follow simple commands-I did discuss treatment plan with the patient's family who is at bedside and verbalized understanding - Exam Vitals: Temp Pulse Resp BP Pulse Ox 98.2 F 92 31 177/108 96 06/09/18 07:52 06/09/18 07:52 06/09/18 07:52 06/09/18 07:52 06/09/18 07:52 Exam: Vitals: Reviewed General: Obese, sleeping, NAD Skin: Warm, dry. HEENT: Moist mucous membranes. No conjunctivae pallor. Neck: No lymphadenopathy. No JVD. Chest: Normal thoracic expansion. Normal breath sounds. Heart: Normal S1 & S2; rhythmic. Abdomen: Non-distended, soft and non-tender to palpation. Extremities: No clubbing, cyanosis or edema. Normal distal pulses. Neurological: No focal deficits noted- oriented 3 follow simple commands Psych: Unable to assess due to somnolence. - Assessment and Plan (1) Hemochromatosis Current Visit: Yes Status: Chronic Assessment and Plan: Current hemoglobin is within normal limits. He will continue to follow as an outpatient with hematology. (2) Diabetes Current Visit: Yes Status: Acute Assessment and Plan: Will place on low dose insulin sliding scale. Accu-Cheks before meals at bedtime with sliding scale insulin (3) CAD (coronary artery disease) Current Visit: Yes Status: Chronic Assessment and Plan: Denies any chest pain or shortness of breath Continue antiplatelet and statin therapy. Continuous cardiac monitoring (4) Essential hypertension Current Visit: Yes Status: Acute Assessment and Plan: . Continue home medication Norvasc added per cardiology (5) Atrial fibrillation with rapid ventricular response Current Visit: Yes Status: Acute Assessment and Plan: On physical exam he seems to have a regular rate/rhythm. Unclear if the initial EKG was confounded with motion artifacts. The family members report he has no history of this. Will obtain another EKG in a calmer setting and monitor him on telemetry. -Repeat EKG shows sinus rhythm with inferior ME of undetermined age appears to be Q waves in leads 2 and 3 Cardiology reviewed EKG and appears to be atrial tachycardia and the ED we will continue to monitor (6) UTI (urinary tract infection) Current Visit: Yes Status: Acute Assessment and Plan: Will start empiric abx and send urine for culture.-Urine culture pending (7) Altered level of consciousness Current Visit: Yes Status: Acute Assessment and Plan: Currently mental state is much improved however family still states he is not back to his baseline-he is alert and oriented 3 however makes inappropriate statements The etiology is unclear. It could very well be secondary to a UTI as evidenced by his UA and pelvis CT findings-he does have a CVA history with complex migraines-neurology has been consulted CT of head No acute intracranial abnormality. MRI of brain IMPRESSION: 1. No evidence of acute infarct, intracranial hemorrhage, or significant mass effect. 2. Chronic small vessel ischemic white matter disease and diffuse cerebral volume loss. 3. Examination is severely motion degraded. (8) Electrolyte imbalance Current Visit: Yes Status: Acute Assessment and Plan: As evidenced by hyponatremia and hypochloremia. Based on review of old records it seems to be a chronic issue which may have acutely worsened in the setting of poor oral intake with subsequent dehydration. Will provide normal saline hydration and reassess values. -Improving today will cont to monitor closely Continue IV fluids (9) Elevated troponin Current Visit: Yes Status: Acute Assessment and Plan: No chest pain no ST-T wave abnormality on EKG troponins trend is 0.19, 0.25, 0.26 Cardiology has been consulted-no heparin drip at this time - Time Spent with Patient Total time spent is greater than 50% in coordination of care (as documented) at patient's floor/unit and/or counseling patient: Internal Medicine: Result - Labs CBC & Chem 7: 06/09/18 05:09 06/09/18 05:09 Labs: Short CBC 06/08/18 06/09/18 Range/Units 21:00 05:09 WBC 9.3 D 8.5 (4.3-11.1) K/mcL Hgb 14.1 13.5 (12.9-16.9) g/dL Hct 37.4 L 35.3 L (37.5-50.1) % Plt Count 87 L 83 L (140-400) K/mcL Neutrophils # 7.7 6.7 (1.6-8.9) K/mcL BMP 06/08/18 06/09/18 21:00 05:09 Sodium 128 L 130 L Potassium 4.1 4.0 Chloride 97 L 99 Carbon Dioxide 18 L 17 L BUN 14 13 Creatinine 0.93 0.74 Glucose 174 H 162 H Calcium 9.6 9.1 Cardiac Enzymes 06/08/18 06/09/18 Range/Units 21:00 05:09 Troponin I 0.19 H* 0.25 H* (< 0.04) ng/mL Liver Function 06/08/18 06/09/18 Range/Units 21:00 05:09 Total Bilirubin 3.0 H 3.0 H (0.3-1.0) mg/dL Direct Bilirubin 0.7 H 0.8 H (0.0-0.2) mg/dL AST 30 25 (13-39) Units/L ALT 31 26 (7-52) Units/L Alkaline Phosphatase 54 48 (34-104) Units/L Albumin 4.7 4.2 (3.5-5.7) g/dL Urine 06/08/18 Range/Units 20:26 Urine Color [place] A (Yellow) Urine Clarity Cloudy A (Clear) Urine pH 5.0 (5.0-8.0) pH Units Ur Specific [place] 1.022 (1.010-1.025) Urine Protein 100 H (Neg-Trace) mg/dL Urine Glucose (UA) Normal (Normal) mg/dL - ABG Interpretation ABG results: PT/INR, D-dimer PT 15.2 Seconds (9.4-12.1) H 06/09/18 00:00 - Impressions Impressions Abdomen/Pelvis CT 06/08/18 20:12 IMPRESSION: Mild fat stranding surrounding the urinary bladder. Correlate with any clinical evidence of urinary tract infection. Otherwise, no acute abnormality detected. Unchanged 1 cm pleural based nodule in the right lower lung. Again, follow-up in 1 year is recommended to ensure stability over a 2 year period. D/ / Geoff Yee MD / Geoff Yee MD Interpreting Provider: Geoff Yee MD Chest X-Ray 06/08/18 20:12 IMPRESSION: Small right pleural effusion is suspected. No focal consolidation. D/ / 06/08/2018 20:35:30 Fernandez Bojorquez MD / [facility] Interpreting Provider: Fernandez Bojorquez MD Head CT 06/08/18 20:12 IMPRESSION: No acute intracranial abnormality. D/ / Geoff Yee MD / Geoff Yee MD Interpreting Provider: Geoff Yee MD Consult Discharge Plan - Plan Referrals: Oliver Redman DO [Primary Care Provider] - (1) Hemochromatosis Qualifiers: Hemochromatosis type: unspecified Qualified Code(s): E83.119 - Hemochromatosis, unspecified (2) Diabetes Qualifiers: Diabetes mellitus type: type 2 Diabetes mellitus long-term insulin use: without ocean transportation intermediary use Diabetes mellitus complication status: with unspecified complications Qualified Code(s): E11.8 - Type 2 diabetes mellitus with unspecified complications (3) CAD (coronary artery disease) Qualifiers: Coronary Disease-Associated Artery/Lesion type: [place] artery [place] vs. transplanted heart: [place] heart Associated angina: without angina Qualified Code(s): I25.10 - Atherosclerotic heart disease of [place] coronary artery without angina pectoris (6) UTI (urinary tract infection) Qualifiers: Urinary tract infection type: acute cystitis Hematuria presence: without hematuria Qualified Code(s): N30.00 - Acute cystitis without hematuria
--- NOTE | 2018-06-09 11:14 | Cardiology Consult Note ---
Addendum entered and electronically signed by Cole García CNP 06/09/18 11:38: 4) uncontrolled HTN. Increase norvasc. Original Note: <Cole García - Last Filed: 06/09/18 11:00> Date of Encounter: 06/09/18 Time of Encounter: 08:15 Assessment and Plan (1) Chest pain Current Visit: No Status: Acute 77-year-old male with a history of CAD admits to intermittent chest pain that appears to be chronic. He is drowsy and unable to fully describe and is confused. Presents with altered mental status. Outside cardiology records from now, will reviewed. Patient is reported to have frequent complaints of abdominal and chest pain. He is underwent went multiple cardiac catheterizations. Last PCI in 2017 to the RCA. Troponin with mild elevation at 0.19 and 0.25. Type II mi in the setting of UTI/sepsis verses NSTEMI. EKG sinus rhythm with inferior MD with undetermined age. Appears to be Q waves in leads 2 and 3. When compared to prior EKG this appears to be unchanged. Noted that he had atrial tachycardia in the ED. EKG showed sinus arrhythmia. No documented afib. Continue to monitor. TTE ordered. If troponin continues to increase consider starting heparin drip. Noted platelets are low at 87 . Further recommendations to follow. Qualifiers: Chest pain type: unspecified Qualified Code(s): R07.9 - Chest pain, unspecified (2) CAD (coronary artery disease) Current Visit: Yes Status: Chronic reported hitsory of CAD s/p PCI. Last LHC at [facility] in 2016 showed severe three-vessel CAD with a patent proximal LAD stent. There is diffuse disease distal LAD as seen on prior cardiac catheterization. CHEMICAL DETECTION EXPERT of the left circumflex has seen previously. There is severe disease in the mid RCA and he received PTCA and drug-eluting stent with good results. EF was 35-40%.He was recently transferring care to local director of culture per reports. TTE completed at [facility] May 2017 showed EF at 50-55%. There is basal wall hypokinesis. Repeat TTE pending. Qualifiers: Coronary Disease-Associated Artery/Lesion type: [place] artery [place] vs. transplanted heart: [place] heart Associated angina: without angina Qualified Code(s): I25.10 - Atherosclerotic heart disease of [place] coronary artery without angina pectoris (3) Elevated troponin Current Visit: Yes Status: Acute See plan above. Discussion w patient/family: The assessment and plan as outlined above was discussed with the patient and/or family members who expressed understanding and agreement. All questions were answered. Thank you for involving us in the care of your patient. Please call with any questions. History of Present Illness Consult date: 06/09/18 Requesting physician: Neo Cotter Consult reason: elevated troponin Chief complaint: AMS History of present illness: Mr. Murray is a 77 year old male with a past medical history significant for hemachromatosis, CAD status post previous PCI, CVA, DM type II and hypertension. He presents from home with altered mental status and increased incontinence. Cardiology is consulted for elevated troponin at 0.19 and 0.25. He apparently recently was referred to a director of culture at outside hospital for ongoing chest pain. On my exam he is drowsy and falls asleep frequently. He does admit to intermittent midsternal chest discomfort that is nonradiating. He states it feels like a pressure. He also states that this has been going on for "years". He denies shortness of breath or palpitations. Denies dizziness or lightheadedness. He denies orthopnea, PND, or edema. He was reported to have some atrial tachycardia in the ED with concern for A. fib but this was not documented on EKG or printed telemetry. Past Med Surg Social Fam HX - Past Medical History Source: unable to obtain, old records reviewed, other (Pt drowsy and does not answer all questions. ) Medical history: CHF, diabetes, GERD, hypertension, liver disease, migraine, thyroid disease, TIA Psychiatric history: anxiety, depression - Past Surgical History Surgical History: appendectomy, cholecystectomy - Social History Smoking Status: Never smoker Smokeless Tobacco Status: No Alcohol use: none Drug use: none - Family History Father Adopted: Yes Medications and Allergies Aspirin Enteric Coated [Aspirin EC] 81 mg PO DAILY 11/11/14 [History] Losartan Potassium [Cozaar] 50 mg PO DAILY 11/11/14 [History] Cholecalciferol (Vitamin D3) [Vitamin D3] 2,000 unit PO DAILY 06/05/15 [History] Atorvastatin [Lipitor] 20 mg PO HS 06/01/16 [History] Dutasteride [Avodart] 0.5 mg PO QWEEK 06/01/16 [History] Mirtazapine 7.5 mg PO HS 04/24/17 [History] Famotidine [Heartburn Prevention] 10 mg PO HS 05/16/17 [History] Metformin HCl [Metformin ER Gastric] 500 mg PO QPM 05/16/17 [History] Metoprolol XL (24 HR) Succ [Toprol Xl] 100 mg PO DAILY 05/16/17 [History] Omeprazole [PriLOSEC] 40 mg PO DAILY 05/16/17 [History] Topiramate [Topamax] 50 mg PO HS 05/16/17 [History] Albuterol Sulfate [Albuterol Inhaler] 2 puff IH Q4HR PRN #1 hfa.aer.ad 05/17/17 [Rx] amLODIPine [Norvasc] 5 mg PO DAILY #30 tablet 05/17/17 [Rx] Clopidogrel [Plavix] 75 mg PO DAILY 09/09/17 [History] Isosorbide MONOnitrate (24 HR) [Imdur] 120 mg PO DAILY 09/09/17 [History] Levothyroxine [Synthroid] 50 mcg PO 0630 09/09/17 [History] Tamsulosin [Flomax] 0.4 mg PO QPM 09/09/17 [History] Mirabegron [Myrbetriq] 50 mg PO HS 06/09/18 [History] Topiramate [Topamax] 25 mg PO DAILY 06/09/18 [History] Allergy/AdvReac Type Severity Reaction Status Date / Time cephalexin AdvReac Rash Verified 04/27/18 12:56 ciprofloxacin [From Cipro] AdvReac Rash Verified 04/27/18 12:56 fenofibrate [From Tricor] AdvReac Rash Verified 04/27/18 12:56 hydrocodone AdvReac Dizziness Verified 04/27/18 12:56 oxycodone [From Percocet] AdvReac Rash Verified 04/27/18 12:56 sulfamethoxazole AdvReac Rash Verified 04/27/18 12:56 [From Bactrim] tramadol AdvReac Rash Verified 04/27/18 12:56 trimethoprim [From Bactrim] AdvReac Rash Verified 04/27/18 12:56 All Systems Review: The remainder of the systems were reviewed and are negative Physical Examination Vital Signs, Last 4 Hours Temp Pulse Resp BP Pulse Ox 06/09/18 07:52 98.2 F 92 31 177/108 96 General: No Apparent Distress, Other (Drowsy) HEENT: Other (Pin point pupils) Neck: No JVD Cardiac: Reg Rate and Rhythm, Normal S1 and S2, No Murmur Lungs: Normal Breath Sounds, No Wheeze, Rales, Rhonchi Neuro: No focal deficits noted Abdomen: Soft, Non-Tender Skin: No rashes noted on visualized skin Musculoskeletal: No Chest Wall Tenderness Extremities: No Clubbing, No Cyanosis, No Edema, Normal Pulses Results 06/09/18 05:09 06/09/18 05:09 Lab Results 06/08/18 06/08/18 06/09/18 21:00 21:00 00:00 WBC 9.3 D Hgb 14.1 Hct 37.4 L Plt Count 87 L INR 1.4 APTT 27.8 Sodium 128 L Potassium 4.1 Chloride 97 L Carbon Dioxide 18 L BUN 14 Creatinine 0.93 Glucose 174 H Calcium 9.6 Total Bilirubin 3.0 H AST 30 ALT 31 Alkaline Phosphatase 54 Troponin I 0.19 H* 06/09/18 06/09/18 06/09/18 05:09 05:09 05:09 WBC 8.5 Hgb 13.5 Hct 35.3 L Plt Count 83 L INR APTT Sodium 130 L Potassium 4.0 Chloride 99 Carbon Dioxide 17 L BUN 13 Creatinine 0.74 Glucose 162 H Calcium 9.1 Total Bilirubin AST ALT Alkaline Phosphatase Troponin I 0.25 H* 06/09/18 05:09 WBC Hgb Hct Plt Count INR APTT Sodium Potassium Chloride Carbon Dioxide BUN Creatinine Glucose Calcium Total Bilirubin 3.0 H AST 25 ALT 26 Alkaline Phosphatase 48 Troponin I - Imaging and Cardiology Echo: report reviewed - EKG Interpretation EKG results cardiology: personally reviewed Consult Discharge Plan - Plan Referrals: Oliver Redman DO [Primary Care Provider] - < - Last Filed: 06/10/18 08:46> Date of Encounter: 06/10/18 - Attending Attestation I have personally performed a face to face evaluation on this patient. I have reviewed and agree with the documented findings and care plan as documented by the [facility]. History and Exam by me shows: 77-year-old gentleman with history of CAD, CVA, T2DM, hypertension, hemochromat osis, admitted for altered mental status in the setting of dehydration secondary to diarrhea. Found to have mildly elevated troponin . EKG shows no acute ST-T changes. This is likely demand ischemia from his medical illness. Thrombocytopenia noted on CBC. He needs to be rehydrated. We will hold off on IV heparin. Trend troponin to peak. Echo shows preserved EF Srinivasa Gasca MD FAC Assessment and Plan Discussion w patient/family: The assessment and plan as outlined above was discussed with the patient and/or family members who expressed understanding and agreement. All questions were answered. Thank you for involving us in the care of your patient. Please call with any questions. History of Present Illness History of present illness: Mr. Murray is a 77 year old male All Systems Review: The remainder of the systems were reviewed and are negative Physical Examination Vital Signs, Last 4 Hours Temp Pulse Resp BP Pulse Ox 06/10/18 07:35 97.5 F L 71 17 163/91 98 Results 06/09/18 05:09 06/09/18 05:09 Lab Results 06/09/18 06/09/18 15:58 20:53 Troponin I 0.26 H* 0.28 H*
[2018-06-09] MEDS: Isosorbide MONOnitrate (24 HR) 60 MG TAB.ER.24H PO SCH (11:17)
[2018-06-09] MEDS: Metoprolol XL (24 HR) Succ 50 MG TAB.ER.24H PO SCH (11:17)
[2018-06-09] MEDS: Aspirin Enteric Coated 81 MG Tablet PO SCH (11:18)
[2018-06-09] MEDS: Cholecalciferol (D-3) 1,000 UNIT TABLET PO SCH (11:18)
[2018-06-09] MEDS: Topiramate 25 MG TABLET PO SCH ×2 (11:18→21:57)
[2018-06-09] MEDS ORDERED: amLODIPine 5 MG TABLET PO ONE (11:40)
[2018-06-09] MEDS: Mirtazapine 15 MG TABLET PO SCH (21:57)
[2018-06-09] MEDS: Famotidine 20 MG TABLET PO SCH (21:57)
[2018-06-09] MEDS: (Mirabegron [Myrbetriq] 50 MG) PO SCH (21:57)
[2018-06-09] MEDS: GuaiFENesin/Dextromethorphan TABLET PO PRN (21:57)
[2018-06-10] MEDS: Piperacillin/Tazobactam 3.375 GM in 0.9 % Sodium Chloride Mini Bag 100 ML IVPB SCH ×4 (00:06→23:34)
[2018-06-10] MEDS: Insulin LISPRO 300 UNITS/3 ML VIAL SQ SCH ×4 (01:42→18:32)
[2018-06-10] MEDS: *HR* Heparin 5,000 UNIT/ML VIAL SQ SCH ×3 (05:53→21:42)
[2018-06-10] MEDS: Isosorbide MONOnitrate (24 HR) 60 MG TAB.ER.24H PO SCH (08:54)
[2018-06-10] MEDS: Aspirin Enteric Coated 81 MG Tablet PO SCH (08:54)
[2018-06-10] MEDS: Metoprolol XL (24 HR) Succ 50 MG TAB.ER.24H PO SCH (08:54)
[2018-06-10] MEDS: Topiramate 25 MG TABLET PO SCH ×2 (08:54→21:43)
[2018-06-10] MEDS: Cholecalciferol (D-3) 1,000 UNIT TABLET PO SCH (08:55)
[2018-06-10] MEDS: amLODIPine 5 MG TABLET PO SCH (08:55)
[2018-06-10] MEDS: 0.9 % Sodium Chloride 1,000 ML IVC SCH (08:56)
[2018-06-10 11:24] LABS: BUN/Creatinine Ratio 17 (6-26); Blood Urea Nitrogen 14 mg/dL (8-23); Calcium 8.4 mg/dL (8.6-10.3); Carbon Dioxide 21 mEq/L (23-29); Chloride 100 mEq/L (98-107); Glucose 206 mg/dL (70-105); Osmolality,Calculated 274 (280-300); Potassium 3.5 mEq/L (3.5-5.1); Sodium 129 mEq/L (136-145); eGFR For Non-African Americans > 60 (> 60)
--- NOTE | 2018-06-10 12:10 | Neurology - Consult Note ---
Date of Encounter: 06/10/18 Time of Encounter: 12:06 Assessment and Plan (1) Altered mental status Current Visit: Yes Status: Acute This patient developed intermittent confusion and word finding difficulty in the last few days after increasing topiramate dosage, without any significant focal weakness, with rapid improvement after discontinuation of the topiramate. Currently no significant medical provoking factors identified except elevated glucose level. This is likely not a true TIA are likely side effects from the use of topiramate. Patient currently is taking a combination of aspirin and Plavix therefore treatment appears adequate. Would recommend complete TIA workup including carotid artery duplex and echocardiogram. Continue medical treatment including tight glucose control and blood pressure management. We will sign off at this time please call if any questions. Qualifiers: Altered mental status type: disorientation Qualified Code(s): R41.0 - Disorientation, unspecified History of Present Illness Chief complaint: Confusion HPI: Mr. Murray is a 77 year old male with a past medical history significant for hypertension, DM, hypothyroidism, hyperlipidemia, complicated migraine, coronary artery disease, history of sleep apnea, history of hemochromatosis who presented to the emergency room with a chief complaint of intermittent confusion and word finding difficulty. Patient states that he has history of migraine headaches and he last seen Dr. Eloise Chowdary on 06/06/2018 who suggested to increase his topiramate to 50 mg in the morning and 25 mg before bedtime and after that he started experiencing side effects, was confused and just a feeling lousy. Apparently, this occurred right after he increase his topiramate dosage and has lasted few days therefore he decided to go to emergency room. Initial CT of the head showed no acute intracranial abnormality. Patient was admitted on to the medical floor for further evaluation. At the time of this interview, patient already completed MRI of the brain without contrast which showed no acute intracranial abnormality. Meanwhile, the patient states that he is feeling much better although not 100% back to normal. He denies any significant focal weakness and no headaches reported. Past Med Surg Social Fam HX - Past Medical History Medical history: CHF, diabetes, GERD, hypertension, liver disease, migraine, thyroid disease, TIA Psychiatric history: anxiety, depression - Past Surgical History Surgical History: appendectomy, cholecystectomy - Social History Smoking Status: Never smoker Smokeless Tobacco Status: No Alcohol use: none Drug use: none - Family History Father Adopted: Yes Medications and Allergies Aspirin Enteric Coated [Aspirin EC] 81 mg PO DAILY 11/11/14 [History] Losartan Potassium [Cozaar] 50 mg PO DAILY 11/11/14 [History] Cholecalciferol (Vitamin D3) [Vitamin D3] 2,000 unit PO DAILY 06/05/15 [History] Atorvastatin [Lipitor] 20 mg PO HS 06/01/16 [History] Dutasteride [Avodart] 0.5 mg PO QWEEK 06/01/16 [History] Mirtazapine 7.5 mg PO HS 04/24/17 [History] Famotidine [Heartburn Prevention] 10 mg PO HS 05/16/17 [History] Metformin HCl [Metformin ER Gastric] 500 mg PO QPM 05/16/17 [History] Metoprolol XL (24 HR) Succ [Toprol Xl] 100 mg PO DAILY 05/16/17 [History] Omeprazole [PriLOSEC] 40 mg PO DAILY 05/16/17 [History] Topiramate [Topamax] 50 mg PO HS 05/16/17 [History] Albuterol Sulfate [Albuterol Inhaler] 2 puff IH Q4HR PRN #1 hfa.aer.ad 05/17/17 [Rx] amLODIPine [Norvasc] 5 mg PO DAILY #30 tablet 05/17/17 [Rx] Clopidogrel [Plavix] 75 mg PO DAILY 09/09/17 [History] Isosorbide MONOnitrate (24 HR) [Imdur] 120 mg PO DAILY 09/09/17 [History] Levothyroxine [Synthroid] 50 mcg PO 0630 09/09/17 [History] Tamsulosin [Flomax] 0.4 mg PO QPM 09/09/17 [History] Mirabegron [Myrbetriq] 50 mg PO HS 06/09/18 [History] Topiramate [Topamax] 25 mg PO DAILY 06/09/18 [History] Allergy/AdvReac Type Severity Reaction Status Date / Time cephalexin AdvReac Rash Verified 04/27/18 12:56 ciprofloxacin [From Cipro] AdvReac Rash Verified 04/27/18 12:56 fenofibrate [From Tricor] AdvReac Rash Verified 04/27/18 12:56 hydrocodone AdvReac Dizziness Verified 04/27/18 12:56 oxycodone [From Percocet] AdvReac Rash Verified 04/27/18 12:56 sulfamethoxazole AdvReac Rash Verified 04/27/18 12:56 [From Bactrim] tramadol AdvReac Rash Verified 04/27/18 12:56 trimethoprim [From Bactrim] AdvReac Rash Verified 04/27/18 12:56 All Systems: The remainder of the systems were reviewed and are negative Physical Examination - Vital Signs Vital Signs: Initial Vital Signs Temp Pulse Resp BP Pulse Ox 99.7 F H 116 20 159/86 97 06/08/18 20:13 06/08/18 20:13 06/08/18 20:13 06/08/18 20:13 06/08/18 20:13 - Constitutional General appearance: comfortable - Neurologic Sensorimotor examination: intact Detailed motor examination: grossly full strength in all extremities Motor examination - right side: 5/5: deltoids, biceps, triceps, wrist flexion, wrist extension, lisw, hip flexors, tibialis Anterior, quadriceps, toe extension (EHL), plantarflexion Motor examination - left side: 5/5: deltoids, biceps, triceps, wrist flexion, wrist extension, hip flexors, lisw, quadriceps, tibialis Anterior, toe extension (EHL), plantarflexion Detailed sensory examination: intact Posture: other (None) Reflex and gait examination: intact (Except gait not assessed.) Reflexes: Biceps: 1+, Triceps: 1+, Brachioradialis: 1+, Patella: 1+, Achilles: 1+ Mental Status Examination: awake, alert, oriented to person, oriented to place, oriented to time (Unable to get the year right after waking up but is able to tell later on during the examination), follows commands appropriately, answers questions appropriately, no agnosia, no aphasia, no aproxia Cranial nerve examination: PERRL, EOMI, visual [place] intact, corneal reflexes brisk symmetrically, sensory to face intact, mastication intact, no facial asymmetry is present, no dysarthria, hearing is intact symmetrically, soft palate elevates bilaterally upon phonation, gag reflex intact, flexes SCM and trapezius muscles symmetrically with full power, tongue protrudes midline, no atrophy or facial fasiculations present Results - Laboratory Findings CBC and BMP: 06/09/18 05:09 06/10/18 10:34 Abnormal lab findings: Abnormal lab results Hct 35.3 % (37.5-50.1) L 06/09/18 05:09 MCHC 38.2 g/dL (31.6-35.5) H 06/09/18 05:09 Plt Count 83 K/mcL (140-400) L 06/09/18 05:09 PT 15.2 Seconds (9.4-12.1) H 06/09/18 00:00 Heparin Anti-Xa, Unfract 0.00 IU/mL (0.30-0.70) L 06/09/18 00:00 Sodium 129 mEq/L (136-145) L 06/10/18 10:34 Carbon Dioxide 21 mEq/L (23-29) L 06/10/18 10:34 Glucose 206 mg/dL (70-105) H 06/10/18 10:34 POC Glucose 185 mg/dL (70-99) H 06/10/18 00:20 Calculated Osmolality 274 (280-300) L 06/10/18 10:34 Calcium 8.4 mg/dL (8.6-10.3) L 06/10/18 10:34 Total Bilirubin 3.0 mg/dL (0.3-1.0) H 06/09/18 05:09 Direct Bilirubin 0.8 mg/dL (0.0-0.2) H 06/09/18 05:09 Indirect Bilirubin 2.2 mg/dL (0.0-1.2) H 06/09/18 05:09 Creatine Kinase 263 Units/L (30-223) H 06/08/18 21:00 Troponin I 0.28 ng/mL (< 0.04) H* 06/09/18 20:53 Urine Color [place] (Yellow) A 06/08/18 20:26 Urine Clarity Cloudy (Clear) A 06/08/18 20:26 Urine Protein 100 mg/dL (Neg-Trace) H 06/08/18 20:26 Urine Ketones 15 mg/dL (Negative) H 06/08/18 20:26 Urine Blood Moderate (Negative) H 06/08/18 20:26 Urine Nitrite Positive (Negative) A 06/08/18 20:26 Urine Bilirubin Small (Negative) H 06/08/18 20:26 Ur Leukocyte Esterase Small (Negative) H 06/08/18 20:26 Urine Microscopic RBC 5-15 per hpf (0-3) H 06/08/18 20:26 Urine Microscopic WBC 50-100 per hpf (0-3) H 06/08/18 20:26 Ur Squamous Epith Cells Many per lpf (None-Few) H 06/08/18 20:26 Ur Culture Indicated? NO. (NO) A 06/08/18 20:26 Consult Discharge Plan - Plan Referrals: Oliver Redman DO [Primary Care Provider] -
[2018-06-10 14:08] LABS: Basophils % 0.2 %; Mean Platelet Volume 10.2 fL (9.4-12.4)
[2018-06-10 14:11] LABS: Eosinophils % 0.7 %; Hematocrit 32.6 % (37.5-50.1); Immature Granulocytes % 0.3 % (0-4); Immature Platelets 3.6 % (1.1-6.1); Lymphocytes # 0.6 K/mcL (0.6-4.6); Mean Corpuscular HGB Conc 36.5 g/dL (31.6-35.5); Mean Corpuscular Hemoglobin 31.6 pg (28.0-33.3); Mean Corpuscular Volume 86.5 fL (83.0-100.0); Monocytes # 0.4 K/mcL (0.0-1.3); Monocytes % 7.4 %; Neutrophils # 4.7 K/mcL (1.6-8.9); Red Blood Count 3.77 M/mcL (4.19-5.50); Red Cell Distribution Width 12.7 % (11.5-14.5); Segmented Neutrophils % 80.4 %
[2018-06-10 14:15] LABS: Platelet Count 95 K/mcL (140-400)
[2018-06-10 14:16] LABS: Hemoglobin 11.9 g/dL (12.9-16.9)
--- NOTE | 2018-06-10 16:16 | Internal Med Progress Note ---
Hospitalist Progress Note - Encounter Date of Encounter: 06/10/18 Time of Encounter: 16:16 - Subjective Interval History: Patient was seen and examined at bedside currently sitting up on the side the bed. He is alert and oriented 3 and appropriate. I was notified per nursing staff that patient daughter notified her that patient has made comments "I do not care what I live or anymore"-and suspect that he may have stopped taking his medication on purpose. I did speak with the patient and the a long conversation concerning depression-he states that he does not feel depressed at times he does still side and a misses his who 7 years ago. He denies any suicidal ideations he states that he has a strong support system with his friends-and that he would not commit suicide because it would go against "God's plan"-he expressed future plans for the summer-he does become frustrated over the fact that he does not have as much energy as he did a few years ago however he contributes that to old age. I discussed the treatment plan with the patient I offered him mental-health resources which he declined. - Exam Vitals: Temp Pulse Resp BP Pulse Ox 98.6 F 74 18 121/70 98 06/10/18 12:10 06/10/18 12:10 06/10/18 12:10 06/10/18 12:10 06/10/18 12:10 Exam: Vitals: Reviewed General: Obese, s, NAD Skin: Warm, dry. HEENT: Moist mucous membranes. No conjunctivae pallor. Neck: No lymphadenopathy. No JVD. Chest: Normal thoracic expansion. Normal breath sounds. Heart: Normal S1 & S2; rhythmic. Abdomen: Non-distended, soft and non-tender to palpation. Extremities: No clubbing, cyanosis or edema. Normal distal pulses. 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 He will continue to follow as an outpatient with hematology. (2) Diabetes Current Visit: Yes Status: Acute Assessment and Plan: Will place on low dose insulin sliding scale. Accu-Cheks before meals at bedtime with sliding scale insulin (3) CAD (coronary artery disease) Current Visit: Yes Status: Chronic Assessment and Plan: Denies any chest pain or shortness of breath Continue antiplatelet and statin therapy. Continuous cardiac monitoring -History of CAD status post PCI here last L HC mL Carmol 20 17 shows severe 3 vessel CAD with a patent proximal LAD stent. There is diffuse disease distal LAD as seen on prior cardiac catheterization. Mid RCA he received PTCA and drug-eluting stent with good results EF was 35-40% (4) Essential hypertension Current Visit: Yes Status: Acute Assessment and Plan: . Continue home medication Norvasc added per cardiology-blood pressure stable (5) Atrial fibrillation with rapid ventricular response Current Visit: Yes Status: Acute Assessment and Plan: On physical exam he seems to have a regular rate/rhythm. Unclear if the initial EKG was confounded with motion artifacts. The family members report he has no history of this. Will obtain another EKG in a calmer setting and monitor him on telemetry. -Repeat EKG shows sinus rhythm with inferior CA of undetermined age appears to be Q waves in leads 2 and 3 Cardiology reviewed EKG and appears to be atrial tachycardia and the ED we will continue to monitor We will obtain cardiac echo (6) UTI (urinary tract infection) Current Visit: Yes Status: Acute Assessment and Plan: Will start empiric abx and send urine for culture.-Urine culture negative however patient does complain of burning on urination so we will continue for now (7) Altered level of consciousness Current Visit: Yes Status: Acute Assessment and Plan: Currently mental state is much improved however family still states he is not back to his baseline-he is alert and oriented 3 however makes inappropriate statements The etiology is unclear. It could very well be secondary to a UTI as evidenced by his UA and pelvis CT findings-he does have a CVA history with complex migraines-neurology has been consulted CT of head No acute intracranial abnormality. MRI of brain IMPRESSION: 1. No evidence of acute infarct, intracranial hemorrhage, or significant mass effect. 2. Chronic small vessel ischemic white matter disease and diffuse cerebral volume loss. 3. Examination is severely motion degraded. Patient seen by neurology recommending complete GI workup including carotid artery duplex and echocardiogram suspect side effects from the use of Topiramate Continue with dual antiplatelet therapy (8) Electrolyte imbalance Current Visit: Yes Status: Acute Assessment and Plan: As evidenced by hyponatremia and hypochloremia. Based on review of old records it seems to be a chronic issue which may have acutely worsened in the setting of poor oral intake with subsequent dehydration. Will provide normal saline hydration and reassess values. -Improving today will cont to monitor closely- it appears that sodium level is chronically low we will monitor closely- baseline 130-133 (9) Elevated troponin Current Visit: Yes Status: Acute Assessment and Plan: No chest pain no ST-T wave abnormality on EKG troponins trend is 0.19, 0.25, 0.26 Cardiology has been consulted-suspect demand ischemia - Time Spent with Patient Total time spent is greater than 50% in coordination of care (as documented) at patient's floor/unit and/or counseling patient: Internal Medicine: Result - Labs CBC & Chem 7: 06/10/18 13:39 06/10/18 10:34 Labs: Short CBC 06/10/18 Range/Units 13:39 WBC 5.8 (4.3-11.1) K/mcL Hgb 11.9 L D (12.9-16.9) g/dL Hct 32.6 L (37.5-50.1) % Plt Count 95 L (140-400) K/mcL Neutrophils # 4.7 (1.6-8.9) K/mcL BMP 06/10/18 10:34 Sodium 129 L Potassium 3.5 Chloride 100 Carbon Dioxide 21 L BUN 14 Creatinine 0.81 Glucose 206 H Calcium 8.4 L Cardiac Enzymes 06/09/18 06/09/18 Range/Units 15:58 20:53 Troponin I 0.26 H* 0.28 H* (< 0.04) ng/mL - ABG Interpretation ABG results: PT/INR, D-dimer PT 15.2 Seconds (9.4-12.1) H 06/09/18 00:00 - Impressions Impressions Brain MRI 06/09/18 03:42 IMPRESSION: 1. No evidence of acute infarct, intracranial hemorrhage, or significant mass effect. 2. Chronic small vessel ischemic white matter disease and diffuse cerebral volume loss. 3. Examination is severely motion degraded. D/ / Ortiz Dailey MD / Ortiz Dailey MD Interpreting Provider: Ortiz Dailey MD Consult Discharge Plan - Plan Referrals: Oliver Redman DO [Primary Care Provider] - (1) Hemochromatosis Qualifiers: Hemochromatosis type: unspecified Qualified Code(s): E83.119 - Hemochromatosis, unspecified (2) Diabetes Qualifiers: Diabetes mellitus type: type 2 Diabetes mellitus assisted insulin use: with out assisted use Diabetes mellitus complication status: with unspecified complications Qualified Code(s): E11.8 - Type 2 diabetes mellitus with uns pecified complications (3) CAD (coronary artery disease) Qualifiers: Coronary Disease-Associated Artery/Lesion type: [place] artery [place] vs. transplanted heart: [place] heart Associated angina: without angina Qualified Code(s): I25.10 - Atherosclerotic heart disease of [place] coronary artery without angina pectoris (6) UTI (urinary tract infection) Qualifiers: Urinary tract infection type: acute cystitis Hematuria presence: without hematuria Qualified Code(s): N30.00 - Acute cystitis without hematuria
--- NOTE | 2018-06-10 16:24 | Cardiology Progress Note ---
Date of Encounter: 06/10/18 Time of Encounter: 16:21 Assessment and Plan (1) Chest pain Current Visit: No Status: Acute 77-year-old male with a history of CAD admits to intermittent chest pain that appears to be chronic. He is alert today. Not confused. States he is not having any chest pain. He follows with Dr. Appiah at [facility]. Outside cardiology records reviewed. He is underwent went multiple cardiac catheterizations in the past. Last PCI in 2017 to the RCA. Troponin with mild elevation at 0.19 and 0.25. Likely demand ischemia in the setting of sepsis/UTI. EKG sinus rhythm with inferior AR with undetermined age. Appears to be Q waves in leads 2 and 3. When compared to prior EKG this appears to be unchanged. Noted that he had atrial tachycardia in the ED. EKG showed sinus arrhythmia. No documented afib. Tele showed avg HR 76 over last 24 hours. NSR. No afib seen. TTE completed shows preserved EF. LVEF 50-55%, no significant valvular dysfunction. Reviewed with patient. if troponin trending down, no further testing indicated at this time. Cardiology will sign off. Recommend he follows with his reject opener in a few weeks. Qualifiers: Chest pain type: unspecified Qualified Code(s): R07.9 - Chest pain, unspecified (2) CAD (coronary artery disease) Current Visit: Yes Status: Chronic reported hitsory of CAD s/p PCI. Last LHC at [facility] in 2016 showed severe three-vessel CAD with a patent proximal LAD stent. There is diffuse disease distal LAD as seen on prior cardiac catheterization. IMPREGNATOR of the left circumflex has seen previously. There is severe disease in the mid RCA and he received PTCA and drug-eluting stent with good results. EF was 35-40%. TTE completed at [facility] May 2017 showed EF at 50-55%. There is basal wall hypokinesis. Repeat TTE with preserved EF. Continue asa, statin, and bb. Qualifiers: Coronary Disease-Associated Artery/Lesion type: [place] artery [place] vs. transplanted heart: [place] heart Associated angina: without angina Qualified Code(s): I25.10 - Atherosclerotic heart disease of [place] coronary artery without angina pectoris (3) Elevated troponin Current Visit: Yes Status: Acute See plan above. Discussion w patient/family: The assessment and plan as outlined above was discussed with the patient and/or family members who expressed understanding and agreement. All questions were answered. Thank you for involving us in the care of your patient. Please call with any questions. Subjective Principal diagnosis: confusion Interval history: Mr. Murray is more alert today. No confusion. Denies having chest pain. States that his neurologist recently made some med changes that may have caused this event. Objective Vital Signs, Last 4 Hours Temp Pulse Resp BP Pulse Ox 06/10/18 16:11 97.8 F 79 27 121/55 96 General: Conversant, No Apparent Distress HEENT: Atraumatic, Normocephaly, Mucus Membranes Moist Neck: No JVD, Normal carotid pulses Cardiac: Reg Rate and Rhythm, Normal S1 and S2, No Murmur Lungs: Normal Breath Sounds, No Wheeze, Rales, Rhonchi Neuro: Alert and responsive, No focal deficits noted Abdomen: Soft, Non-Tender Skin: No rashes noted on visualized skin Musculoskeletal: No Chest Wall Tenderness Extremities: No Clubbing, No Cyanosis, No Edema, Normal Pulses Results 06/10/18 13:39 06/10/18 10:34 Lab Results 06/09/18 06/09/18 06/10/18 15:58 20:53 10:34 WBC Hgb Hct Plt Count Sodium 129 L Potassium 3.5 Chloride 100 Carbon Dioxide 21 L BUN 14 Creatinine 0.81 Glucose 206 H Calcium 8.4 L Troponin I 0.26 H* 0.28 H* 06/10/18 13:39 WBC 5.8 Hgb 11.9 L D Hct 32.6 L Plt Count 95 L Sodium Potassium Chloride Carbon Dioxide BUN Creatinine Glucose Calcium Troponin I - Imaging and Cardiology Echo: report reviewed - EKG Interpretation EKG results cardiology: personally reviewed Consult Discharge Plan - Plan Referrals: Oliver Redman DO [Primary Care Provider] -
[2018-06-10] MEDS: GuaiFENesin/Dextromethorphan TABLET PO PRN (21:42)
[2018-06-10] MEDS: Famotidine 20 MG TABLET PO SCH (21:43)
[2018-06-10] MEDS: Mirtazapine 15 MG TABLET PO SCH (21:43)
[2018-06-10] MEDS: (Mirabegron [Myrbetriq] 50 MG) PO SCH (21:44)
[2018-06-11] MEDS: Insulin LISPRO 300 UNITS/3 ML VIAL SQ SCH ×3 (00:56→12:48)
[2018-06-11 05:24] LABS: BUN/Creatinine Ratio 19 (6-26); Blood Urea Nitrogen 14 mg/dL (8-23); Calcium 8.4 mg/dL (8.6-10.3); Carbon Dioxide 21 mEq/L (23-29); Chloride 104 mEq/L (98-107); Glucose 157 mg/dL (70-105); Osmolality,Calculated 278 (280-300); Potassium 3.4 mEq/L (3.5-5.1); Sodium 132 mEq/L (136-145); eGFR For Non-African Americans > 60 (> 60)
[2018-06-11 05:27] LABS: Basophils % 0.4 %; Eosinophils # 0.1 K/mcL (0.0-0.6); Hematocrit 28.2 % (37.5-50.1); Hemoglobin 10.7 g/dL (12.9-16.9); Immature Granulocytes % 0.4 % (0-4); Lymphocytes # 0.5 K/mcL (0.6-4.6); Lymphocytes % 16.9 %; Mean Corpuscular Hemoglobin 32.1 pg (28.0-33.3); Mean Corpuscular Volume 84.7 fL (83.0-100.0); Mean Platelet Volume 10.2 fL (9.4-12.4); Monocytes # 0.3 K/mcL (0.0-1.3); Monocytes % 12.4 %; Neutrophils # 1.8 K/mcL (1.6-8.9); Red Blood Count 3.33 M/mcL (4.19-5.50); Red Cell Distribution Width 12.8 % (11.5-14.5); Segmented Neutrophils % 66.9 %
[2018-06-11 05:28] LABS: Mean Corpuscular HGB Conc 37.9 g/dL (31.6-35.5); Platelet Count 74 K/mcL (140-400)
[2018-06-11] MEDS: *HR* Heparin 5,000 UNIT/ML VIAL SQ SCH ×2 (05:50→14:19)
[2018-06-11] MEDS: Aspirin Enteric Coated 81 MG Tablet PO SCH (10:04)
[2018-06-11] MEDS: Metoprolol XL (24 HR) Succ 50 MG TAB.ER.24H PO SCH (10:04)
[2018-06-11] MEDS: Topiramate 25 MG TABLET PO SCH (10:04)
[2018-06-11] MEDS: Cholecalciferol (D-3) 1,000 UNIT TABLET PO SCH (10:05)
[2018-06-11] MEDS: amLODIPine 5 MG TABLET PO SCH (10:05)
[2018-06-11] MEDS: Piperacillin/Tazobactam 3.375 GM in 0.9 % Sodium Chloride Mini Bag 100 ML IVPB SCH (10:05)
[2018-06-11] MEDS: Isosorbide MONOnitrate (24 HR) 60 MG TAB.ER.24H PO SCH (10:05)
[2018-06-11 11:41] VITALS: BP 164/78
[2018-06-11 12:43] LABS: Alanine Aminotransferase 43 Units/L (7-52); Albumin 3.5 g/dL (3.5-5.7); Albumin/Globulin Ratio 1.6 (1.1-2.2); Alkaline Phosphatase 43 Units/L (34-104); Aspartate Amino Transferase 38 Units/L (13-39); Bilirubin,Direct 0.4 mg/dL (0.0-0.2); Bilirubin,Indirect 0.9 mg/dL (0.0-1.2); Bilirubin,Total 1.3 mg/dL (0.3-1.0); Globulin 2.2 g/dL (2.4-3.5); Total Protein 5.7 g/dL (6.4-8.9)
--- NOTE | 2018-06-11 13:57 | Discharge Summary ---
- NOTES TO OUTPATIENT PROVIDER Notes to Outpatient Provider: May for altered mental state-seen by neurology suspect confusion and word finding likely secondary to recent increase in Topiramate -UTI with no growth elevated troponin secondary to demand ischemia hyponatremia however appears to be back to baseline-monitor chemistry as out patient when he follow-up with neurology oncology and primary care provider Orders not resulted at time of discharge: Pending orders 06/08/18 23:51 Culture,Blood [BC] Stat Date of Encounter: 06/11/18 Time of Encounter: 13:54 - Discharge Diagnosis (1) Hemochromatosis Priority: Secondary Status: Chronic Qualifiers: Hemochromatosis type: unspecified Qualified Code(s): E83.119 - He mochromatosis, unspecified (2) Diabetes Priority: Secondary Status: Acute Qualifiers: Diabetes mellitus type: type 2 Diabetes mellitus 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 transplanted heart: [place] heart Associated angina: without angina Qualified Code(s): I25.10 - Atherosclerotic heart disease of [place] coronary artery without angina pectoris (4) Essential hypertension Priority: Secondary Status: Acute (5) Atrial fibrillation with rapid ventricular response Priority: Secondary Status: Acute (6) UTI (urinary tract infection) Priority: Secondary Status: Acute Qualifiers: Urinary tract infection type: acute cystitis Hematuria presence: without hematuria Qualified Code(s): N30.00 - Acute cystitis without hematuria (7) Altered level of consciousness Priority: Primary Status: Acute (8) Electrolyte imbalance Priority: Secondary Status: Acute (9) Elevated troponin Priority: Secondary Status: Acute Hospital course: Mr. Murray is a 77 year old male spell history of CHF diabetes GERD hypertension liver disease migraine thyroid disease TIA hemachromatosis was diagnosed in the followed with serial CBCs and intermittent phlebotomy. He is followed by oncology as outpatient. BP H status post prostate resection heart failure coronary artery disease with stent placement thyroid disease and CVA. He presented to [facility] ED after being brought in by family members due to altered mental status that has been present for the past 5 days. Patient has been experiencing intermittent episodes of confusion and bowel incontinence he was found in his home slumped between his bed and the wall incontinence. He has a history of headaches and diagnosed with complex migraines he did have a dose increase of topiramate and decrease of metformin reduced to once a day. 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 Repeat TTE with preserved EF advised to continue aspirin and statin beta aparna-neurology was also consulted recommending TIA workup carotid duplex with nonstenotic plaque. Neurology recommending continue with aspirin and Plavix suspect changes may have been from recent increase in topiramat-he was treated for UTI however urine culture was negative and IV antibiotics discontinued after 2 days. He is returned to his baseline. There was some concern by family members the patient was depressed and had suicidal thoughts or patient has declined these thoughts he was evaluated PT and OT patient has declined home health this time. He also had pancytopenia which I reviewed results curbside consult with oncology nurse practitioner Marlen Francois who advised patient to follow-up as outpatient with oncology. Patient was advised to follow-up with primary care provider cardiology oncology and neurology patient verbalized understanding currently he is hemodynamically stable and he is ready for discharge. - Time Spent with Patient Total time spent providing and/or coordinating discharge services: - Discharge Medications Prescriptions: Continue Aspirin Enteric Coated [Aspirin EC] 81 mg PO DAILY Losartan Potassium [Cozaar] 50 mg PO DAILY Cholecalciferol (Vitamin D3) [Vitamin D3] 2,000 unit PO DAILY Atorvastatin [Lipitor] 20 mg PO HS Dutasteride [Avodart] 0.5 mg PO QWEEK Mirtazapine 7.5 mg PO HS Famotidine [Heartburn Prevention] 10 mg PO HS Metformin HCl [Metformin ER Gastric] 500 mg PO QPM Metoprolol XL (24 HR) Succ [Toprol Xl] 100 mg PO DAILY Omeprazole [PriLOSEC] 40 mg PO DAILY Topiramate [Topamax] 50 mg PO HS Albuterol Sulfate [Albuterol Inhaler] 2 puff IH Q4HR PRN #1 [id number].[email or web address] PRN Reason: Shortness Of Breath amLODIPine [Norvasc] 5 mg PO DAILY #30 tablet Clopidogrel [Plavix] 75 mg PO DAILY Isosorbide MONOnitrate (24 HR) [Imdur] 120 mg PO DAILY Levothyroxine [Synthroid] 50 mcg PO 0630 Tamsulosin [Flomax] 0.4 mg PO QPM Topiramate [Topamax] 25 mg PO DAILY Mirabegron [Myrbetriq] 50 mg PO HS Home Medications: Aspirin Enteric Coated [Aspirin EC] 81 mg PO DAILY 11/11/14 [History] Losartan Potassium [Cozaar] 50 mg PO DAILY 11/11/14 [History] Cholecalciferol (Vitamin D3) [Vitamin D3] 2,000 unit PO DAILY 06/05/15 [History] Atorvastatin [Lipitor] 20 mg PO HS 06/01/16 [History] Dutasteride [Avodart] 0.5 mg PO QWEEK 06/01/16 [History] Mirtazapine 7.5 mg PO HS 04/24/17 [History] Famotidine [Heartburn Prevention] 10 mg PO HS 05/16/17 [History] Metformin HCl [Metformin ER Gastric] 500 mg PO QPM 05/16/17 [History] Metoprolol XL (24 HR) Succ [Toprol Xl] 100 mg PO DAILY 05/16/17 [History] Omeprazole [PriLOSEC] 40 mg PO DAILY 05/16/17 [History] Topiramate [Topamax] 50 mg PO HS 05/16/17 [History] Albuterol Sulfate [Albuterol Inhaler] 2 puff IH Q4HR PRN #1 hfa.aer.ad 05/17/17 [Rx] amLODIPine [Norvasc] 5 mg PO DAILY #30 tablet 05/17/17 [Rx] Clopidogrel [Plavix] 75 mg PO DAILY 09/09/17 [History] Isosorbide MONOnitrate (24 HR) [Imdur] 120 mg PO DAILY 09/09/17 [History] Levothyroxine [Synthroid] 50 mcg PO 0630 09/09/17 [History] Tamsulosin [Flomax] 0.4 mg PO QPM 09/09/17 [History] Mirabegron [Myrbetriq] 50 mg PO HS 06/09/18 [History] Topiramate [Topamax] 25 mg PO DAILY 06/09/18 [History] Allergies/Adverse Reactions: Allergy/AdvReac Type Severity Reaction Status Date / Time cephalexin AdvReac Rash Verified 04/27/18 12:56 ciprofloxacin [From Cipro] AdvReac Rash Verified 04/27/18 12:56 fenofibrate [From Tricor] AdvReac Rash Verified 04/27/18 12:56 hydrocodone AdvReac Dizziness Verified 04/27/18 12:56 oxycodone [From Percocet] AdvReac Rash Verified 04/27/18 12:56 sulfamethoxazole AdvReac Rash Verified 04/27/18 12:56 [From Bactrim] tramadol AdvReac Rash Verified 04/27/18 12:56 trimethoprim [From Bactrim] AdvReac Rash Verified 04/27/18 12:56 Date of admission: 06/09/18 00:11 Primary care physician: Oliver Redman DO Consults: 06/09/18 03:46 Consult to Neurology [CONS] Routine Consulting Provider: Neurology [facility] Reason for Consult: 77 year old male known to service as an outpatient brought in by family for altered mental status for the past 5 days with unclear etiology. Call Completed: No 06/09/18 06:11 Consult to Cardiology [CONS] Routine Comment: Consulting Provider: Cardiology [place] Reason for Consult: 77 y/o M brought in by family for AMS of unclear etiology. Currently being treated for a UTI. Noted to have an increasing trend in serum troponin with no acute clinical or electrocardiographic signs of ACS. Call Completed: No 06/09/18 19:32 Consult to Physical Therapy [CONS] Routine Comment: Evaluate, develop and implement POC Reason for Consult: falls weakness Does patient have active BEDREST order?: No Is patient medically & hemodynamically stable?: Yes Patient assessed for mobility or mobilized this visit?: No Discharging clinician: Shikha Sherwood Anticipated date of discharge: 06/11/18 - Constitutional Vitals: Temp Pulse Resp BP Pulse Ox 97.5 F L 84 18 164/78 98 06/11/18 11:30 06/11/18 11:30 06/11/18 11:30 06/11/18 11:30 06/11/18 11:30 Exam: Vitals: Reviewed General: Obese, s, NAD Skin: Warm, dry. HEENT: Moist mucous membranes. No conjunctivae pallor. Neck: No lymphadenopathy. No JVD. Chest: Normal thoracic expansion. Normal breath sounds. Heart: Normal S1 & S2; rhythmic. Abdomen: Non-distended, soft and non-tender to palpation. Extremities: No clubbing, cyanosis or edema. Normal distal pulses. Neurological: No focal deficits noted- oriented 3 follow simple commands Psych: Appropriate effect alert and oriented 3 - Patient Status Disposition: Home, Self-Care Condition: Fair Functional capacity at discharge: independent ambulation Overall status at discharge: patient is back to baseline - Discharge Instructions Instructions: Diabetes Mellitus Type 2 in Adults (DC) Follow Up With: Oliver Redman DO [Primary Care Provider] - 06/20/18 12:00 pm - Diet and Activity Activity: increase activity as tolerated Diet: advance to your usual diet
--- NOTE | 2018-06-13 12:33 | Electrocardiograph Report ---
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
--- NOTE | 2018-06-14 09:13 | Electrocardiograph Report ---
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
== END 2018-06-11 17:11 | disposition home or self-care (01) ==
LOC: EMEROOARM 19:43 → 3BNU 19:43
PROVIDERS: ADMIT Internal Medicine; ATTEND Internal Medicine